=== PATIENT | female | born 1990 | race Caucasian/White ===

== ENCOUNTER 2020-11-08 15:20 | Inpatient (IN) | payer SELFPAY ==
[2020-11-08 15:28] VITALS: BP 151/94; PULSE 81; RESP 18; TEMP 37.2; O2SAT 98; BMI 26.3
[2020-11-08 15:56] LABS: Add Urine Microscopic? NO; Charge for UA Resulting for Rev
[2020-11-08 15:58] VITALS: BP 156/96; PULSE 72; RESP 15; O2SAT 95
--- NOTE | 2020-11-08 15:59 | USR_ITS ---
PROCEDURE INFORMATION: Exam: US Abdomen, Limited; Right Upper Quadrant Exam date and time: 11/08/2020 4:24 PM Age: 30 years old Clinical indication: Abdominal pain; Acute; Additional info: Ruq US TECHNIQUE: Imaging protocol: US abdomen. Real time ultrasound with image documentation. Limited exam focused on the right upper quadrant. Total images: 56 COMPARISON: No relevant prior studies available. FINDINGS: Liver: Normal hepatic parenchyma echogenicity. No visible hepatic mass or cystic structure. Gallbladder: Multiple small gallstones. Associated small amount of gallbladder sludge and/or crystalline debris. Gallstones appear mobile. Negative sonographic Montesinos's sign. No gallbladder wall thickening or pericholecystic fluid. Common bile duct: Normal. No stones. No dilation. Common bile duct measures 4.5 mm. Pancreas: Visualized pancreas is unremarkable. No visible pancreatic ductal ectasia. Right kidney: Normal. No mass. No hydronephrosis. Dimensions of the right kidney 10.6 cm x 4.5 cm x 5.2 cm. Aorta: The abdominal aorta, where visualized, is nonaneurysmal. Portal venous: Antegrade portal venous flow. Inferior vena cava: IVC patent. US/US abdomen limited [id number] IMPRESSION: Cholelithiasis.
[2020-11-08 16:04] LABS: Bilirubin Urine 1+ (Negative); Blood Urine Neg (Negative); Glucose Urine UA Norm (Normal); Ketones Urine Negative (Negative); Leukocyte Esterase Urine Negative (Negative); Nitrate Urine Negative (Negative); Protein Urine Neg (Negative); Specific Gravity, Urine 1.015 (1.005-1.030); Urine Appearance Clear (CLEAR); Urine Color Yellow (Yellow); Urobilinogen Urine 4+ mg/dL (Negative); pH Urine 5 (5-7)
--- NOTE | 2020-11-08 16:12 | W.ED.ABDPA2 ---
HPI - Abdominal Pain General: Chief Complaint: Abdominal Pain Stated Complaint: sent by pcp office for gallbladder issues Time Seen by Provider: 11/08/20 15:41 History of Present Illness: HPI narrative: The patient is a 30-year-old female with known cholelithiasis who went to her primary care doctor this morning complaining of right upper quadrant pain since last night. She was sent to the ER after abnormal labs. Total bilirubin 1.9. AST 853. ALT 562. CBC normal. Continues to complain of sharp right upper quadrant pain. She says she is known she has had gallstones for a number of years and did follow-up with a general surgeon however she got scared and did not want to have surgery to remove her gallbladder. MD elicited complaint: abdominal pain Pain Consistency: constant Location: RUQ Severity: moderate Quality: cramping and sharp Radiation: none Exacerbating factors: eating Relieving factors: nothing Associated Symptoms: Reports no associated symptoms; Denies GI cramping, diarrhea, nausea and vomiting Review of Systems General: Reports: 10 or more systems reviewed and unremarkable except in HPI and below Const: Denies: fatigue Eyes: Denies: change in vision, blurry vision or eye redness ENMT: Denies: throat pain, swelling of lips/tongue, ear or mastoid pain or nasal congestion Card: Denies: chest pain, palpitations, irregular heart rhythm, edema, dyspnea on exertion or orthopnea Resp: Denies: dyspnea, productive cough or non-productive cough GI: Reports: abdominal pain; Denies: nausea, vomiting, diarrhea or GI cramping : Denies: flank pain, difficulty voiding, urinary frequency or urinary urgency Musc: Denies: neck pain, back pain, extremity pain, joint pain, joint redness, limited range of motion or muscle weakness Skin/Breast: Denies: rash, pruritus, erythema, skin pain or skin tenderness Neuro: Denies: headache(s), numbness in extremities, weakness in extremities, sensory changes, difficulty walking, dizziness, confusion or Slurred speech present Psych: Denies: anxiety or depression Endo: Denies: polyuria All/Imm: Denies: urticaria, throat swelling or tongue swelling PFSH ED PFSH: Medical History No pertinent past medical history Surgical History No pertinent past surgical history Family History Other Cholecystitis Social History Smoking and tobacco status: current every day smoker cigarettes [ Other cigarette details: Half a pack a day ] Alcohol intake: current Alcohol intake frequency: few times a month Alcohol type: beer Substance/Drug Use: never Household members: significant other Housing: House Physical Exam Const: COMMON NORMALS: no acute distress, average body habitus, patient oriented x3, no limitations, healthy appearing, alert and well nourished GENERAL APPEARANCE: cooperative, comfortable, well kempt and well developed ORIENTATION/CONSCIOUSNESS: Yes awake, Yes oriented to person, Yes oriented to place and Yes oriented to time HENMT: COMMON NORMALS: normocephalic, external ears normal and Normal external nose present HEAD & SCALP: normal to inspection and normocephalic NOSE: Normal external nose present EXTERNAL EAR: Yes external ears normal MOUTH: Normal oral and palatal mucosa present THROAT: posterior oropharynx normal Eye: COMMON NORMALS: Equal, round and reactive pupils present and EOMs intact bilaterally GENERAL EYE: appearance normal, both eyes and all related structures PUPIL: Yes Equal, round and reactive pupils present Neck/C-Spine: COMMON NORMALS: full ROM, no lymphadenopathy, no meningeal signs and no JVD GENERAL: Yes normal visual inspection Lymph: LYMPHATIC: no lymphadenopathy noted Chest: COMMONS NORMALS: normal inspection of the chest and normal palpation of entire chest wall Resp: COMMON NORMALS: normal respiratory effort, No retractions, No use of accessory muscles, clear to auscultation bilaterally and percussion normal EFFORT & INSPECTION: Yes able to speak in complete sentences AUSCULTATION: clear to auscultation bilaterally PERCUSSION: percussion normal Cardio: COMMON NORMALS: no JVD, regular rate, regular rhythm, S1 normal heart sound present, S2 normal heart sound present and Peripheral pulses 2+ throughout RATE: regular rate RHYTHM: regular rhythm HEART SOUNDS: S1 normal heart sound present and S2 normal heart sound present PERIPHERAL PULSES: Peripheral pulses 2+ throughout GI: COMMON NORMALS: Normal to inspection, nondistended, normoactive bowel sounds present, Soft to palpation and no masses INSPECTION: Yes normal to inspection PALPATION: Yes Soft to palpation GI image (female): 1. Positive Montesinos sign, right upper quadrant tenderness. No rebound tenderness. Soft belly. : COMMON NORMALS: Yes no CVA tenderness BLADDER/KIDNEY EXAM: Yes no CVA tenderness Back/Pelvis: COMMON NORMALS: no CVA tenderness, thoracic and lumbar spine normal to inspection, no thoracic nor lumbar tenderness and thoraco-lumbar ROM normal Extremity: COMMON NORMALS: normal to inspection, full ROM, capillary refill normal, no joint enlargement and no pedal edema GENERAL: Yes normal exam except as noted Neuro: COMMON NORMALS: patient oriented x3, CN's II-XII intact bilaterally, moves all extremities, no focal motor deficits, no sensory deficits noted and gait normal SENSORIUM/ORIENTATION: Yes alert, Yes oriented to person, Yes oriented to place and Yes oriented to time MENINGEAL SIGNS: Yes no meningeal signs Psych: COMMON NORMALS: mental status grossly normal, Normal thought process present, cooperative, normal affect and speech normal APPEARANCE: Yes well kempt ATTITUDE: Yes calm SPEECH: Yes normal speech THOUGHT PROCESS: Normal thought process present Skin: COMMON NORMALS: no rashes or lesions noted GENERAL SKIN EXAM: no rashes or lesions noted Course Vital Signs: Vital signs: Vital Signs Temperature 98.9 F 11/08/20 15:28 Pulse Rate 86 11/08/20 20:44 Respiratory Rate 20 H 11/08/20 20:44 Blood Pressure 188/126 11/08/20 20:44 Pulse Oximetry 98 11/08/20 20:44 MDM - Abdominal Pain MDM Narrative: Medical decision making narrative: The patient is a 30-year-old female who comes to the ER complaining of right upper quadrant pain. Elevated AST, ALT and total bilirubin. Also elevated conjugated bilirubin. Viral hepatitis panel negative. Right upper quadrant ultrasound does show cholelithiasis as well as CT abdomen shows the same thing. No cholecystitis but there is mild periportal swelling. Uncertain significance. Discussed with Dr. Cannon who does not recommend cholecystectomy and will follow the patient if the hospitalist needs. Dr. Spence accepts observation. Lab Data: Labs: Lab Results 11/08/20 11/08/20 11/08/20 Range/Units 15:47 15:47 16:04 WBC 8.2 (4.0-10.0) 10^3/ uL RBC 4.91 (4.1-5.3) 10^6/u L Hgb 15.6 H (11.5-15.3) g/dL Hct 45.3 (37.0-47.0) % MCV 92.3 (81-99) fL MCH 31.8 (28.0-34.0) pg MCHC 34.4 (30.0-36.0) g/dL RDW 11.9 L (12.1-15.1) % Plt Count 260 (130-400) 10^3/c mm MPV 11.3 H (7.4-10.4) fL Neut % (Auto) 78.4 % Lymph % (Auto) 13.8 % [place] % (Auto) 7.3 % Eos % (Auto) 0.1 % Baso % (Auto) 0.2 % Neut # (Auto) 6.40 (1.8-7.7) 10^3/u L Lymph # (Auto) 1.1 (0.8-4.8) 10^3/u L [place] # (Auto) 0.6 (0.2-0.9) 10^3/u L Eos # (Auto) 0.0 (0.0-0.8) 10^3/u L Baso # (Auto) 0.0 (0.0-0.1) 10^3/u L Nucleated RBC % (a uto) 0 % Nucleated RBCs # 0.0 /100WBC Sodium (136-145) mmol/L Potassium (3.5-5.1) mmol/L Chloride (98-107) mmol/L Carbon Dioxide (22-29) mmol/L Anion Gap (5-19) BUN (6-20) mg/dL Creatinine (0.5-0.9) mg/dL GFR Calculation (90-130) mL/min Glucose (65-115) mg/dL Calculated Osmolal ity (285-295) mOsm/k g Calcium (8.5-10.5) mg/dL Total Bilirubin (0.15-1.2) mg/dL Direct Bilirubin (0.00-0.30) mg/d L Indirect Bilirubin AST (0-32) U/L ALT (0-33) U/L Alkaline Phosphata se (35-105) IU/L Total Protein (6.6-8.7) g/dL Albumin (3.5-5.2) g/dL Globulin (1.3-4.6) g/dL Lipase (13-60) U/L HCG, Qual (Negative) Urine Color Yellow (Yellow) Urine Appearance Clear (CLEAR) Urine pH 5 (5-7) Ur Specific Gravit y 1.015 (1.005-1.030) Urine Protein Neg (Negative) Urine Glucose (UA) Norm (Normal) Urine Ketones Negative (Negative) Urine Blood Neg (Negative) Urine Nitrate Negative (Negative) Urine Bilirubin 1+ H (Negative) Urine Urobilinogen 4+ H (Negative) mg/dL Ur Leukocyte Rosalind ase Negative (Negative) Urine Opiates Scre en Negative (Negative) ng/mL Acetaminophen (10-30) ug/mL Ur Barbiturates Sc reen Negative (Negative) ng/mL Ur Phencyclidine S crn Negative (Negative) ng/mL Ur Amphetamines Sc reen Negative (Negative) ng/mL U Benzodiazepines Scrn Negative (Negative) ng/mL Urine Cocaine Scre en Negative (Negative) ng/mL U Marijuana (THC) Screen Negative (Negative) ng/mL Hepatitis A IgM Ab (Nonreactive) Hep Bs Antigen (Nonreactive) Hep B Core IgM Ab (Nonreactive) Hepatitis C Antibo dy (Nonreactive) 11/08/20 11/08/20 11/08/20 Range/Units 16:04 16:04 16:04 WBC (4.0-10.0) 10^3/ uL RBC (4.1-5.3) 10^6/u L Hgb (11.5-15.3) g/dL Hct (37.0-47.0) % MCV (81-99) fL MCH (28.0-34.0) pg MCHC (30.0-36.0) g/dL RDW (12.1-15.1) % Plt Count (130-400) 10^3/c mm MPV (7.4-10.4) fL Neut % (Auto) % Lymph % (Auto) % [place] % (Auto) % Eos % (Auto) % Baso % (Auto) % Neut # (Auto) (1.8-7.7) 10^3/u L Lymph # (Auto) (0.8-4.8) 10^3/u L [place] # (Auto) (0.2-0.9) 10^3/u L Eos # (Auto) (0.0-0.8) 10^3/u L Baso # (Auto) (0.0-0.1) 10^3/u L Nucleated RBC % (a uto) % Nucleated RBCs # /100WBC Sodium 139 (136-145) mmol/L Potassium 3.8 (3.5-5.1) mmol/L Chloride 102 (98-107) mmol/L Carbon Dioxide 25 (22-29) mmol/L Anion Gap 15.8 (5-19) BUN 9 (6-20) mg/dL Creatinine 0.6 (0.5-0.9) mg/dL GFR Calculation 118.2 (90-130) mL/min Glucose 99 (65-115) mg/dL Calculated Osmolal ity 287 (285-295) mOsm/k g Calcium 9.0 (8.5-10.5) mg/dL Total Bilirubin 3.1 H (0.15-1.2) mg/dL Direct Bilirubin (0.00-0.30) mg/d L Indirect Bilirubin AST 885 H (0-32) U/L ALT 777 H (0-33) U/L Alkaline Phosphata se 114 H (35-105) IU/L Total Protein 7.5 (6.6-8.7) g/dL Albumin 5.2 (3.5-5.2) g/dL Globulin 2.3 (1.3-4.6) g/dL Lipase 31 (13-60) U/L HCG, Qual Negative (Negative) Urine Color (Yellow) Urine Appearance (CLEAR) Urine pH (5-7) Ur Specific Gravit y (1.005-1.030) Urine Protein (Negative) Urine Glucose (UA) (Normal) Urine Ketones (Negative) Urine Blood (Negative) Urine Nitrate (Negative) Urine Bilirubin (Negative) Urine Urobilinogen (Negative) mg/dL Ur Leukocyte Rosalind ase (Negative) Urine Opiates Scre en (Negative) ng/mL Acetaminophen (10-30) ug/mL Ur Barbiturates Sc reen (Negative) ng/mL Ur Phencyclidine S crn (Negative) ng/mL Ur Amphetamines Sc reen (Negative) ng/mL U Benzodiazepines Scrn (Negative) ng/mL Urine Cocaine Scre en (Negative) ng/mL U Marijuana (THC) Screen (Negative) ng/mL Hepatitis A IgM Ab Non-reactive (Nonreactive) Hep Bs Antigen Non-reactive (Nonreactive) Hep B Core IgM Ab Non-reactive (Nonreactive) Hepatitis C Antibo dy Non-reactive (Nonreactive) 11/08/20 11/08/20 Range/Units 16:04 16:04 WBC (4.0-10.0) 10^3/ uL RBC (4.1-5.3) 10^6/u L Hgb (11.5-15.3) g/dL Hct (37.0-47.0) % MCV (81-99) fL MCH (28.0-34.0) pg MCHC (30.0-36.0) g/dL RDW (12.1-15.1) % Plt Count (130-400) 10^3/c mm MPV (7.4-10.4) fL Neut % (Auto) % Lymph % (Auto) % [place] % (Auto) % Eos % (Auto) % Baso % (Auto) % Neut # (Auto) (1.8-7.7) 10^3/u L Lymph # (Auto) (0.8-4.8) 10^3/u L [place] # (Auto) (0.2-0.9) 10^3/u L Eos # (Auto) (0.0-0.8) 10^3/u L Baso # (Auto) (0.0-0.1) 10^3/u L Nucleated RBC % (a uto) % Nucleated RBCs # /100WBC Sodium (136-145) mmol/L Potassium (3.5-5.1) mmol/L Chloride (98-107) mmol/L Carbon Dioxide (22-29) mmol/L Anion Gap (5-19) BUN (6-20) mg/dL Creatinine (0.5-0.9) mg/dL GFR Calculation (90-130) mL/min Glucose (65-115) mg/dL Calculated Osmolal ity (285-295) mOsm/k g Calcium (8.5-10.5) mg/dL Total Bilirubin 3.1 H (0.15-1.2) mg/dL Direct Bilirubin 2.20 H (0.00-0.30) mg/d L Indirect Bilirubin 0.90 AST (0-32) U/L ALT (0-33) U/L Alkaline Phosphata se (35-105) IU/L Total Protein (6.6-8.7) g/dL Albumin (3.5-5.2) g/dL Globulin (1.3-4.6) g/dL Lipase (13-60) U/L HCG, Qual (Negative) Urine Color (Yellow) Urine Appearance (CLEAR) Urine pH (5-7) Ur Specific Gravit y (1.005-1.030) Urine Protein (Negative) Urine Glucose (UA) (Normal) Urine Ketones (Negative) Urine Blood (Negative) Urine Nitrate (Negative) Urine Bilirubin (Negative) Urine Urobilinogen (Negative) mg/dL Ur Leukocyte Rosalind ase (Negative) Urine Opiates Scre en (Negative) ng/mL Acetaminophen < 5.0 L (10-30) ug/mL Ur Barbiturates Sc reen (Negative) ng/mL Ur Phencyclidine S crn (Negative) ng/mL Ur Amphetamines Sc reen (Negative) ng/mL U Benzodiazepines Scrn (Negative) ng/mL Urine Cocaine Scre en (Negative) ng/mL U Marijuana (THC) Screen (Negative) ng/mL Hepatitis A IgM Ab (Nonreactive) Hep Bs Antigen (Nonreactive) Hep B Core IgM Ab (Nonreactive) Hepatitis C Antibo dy (Nonreactive) Discharge Plan Discharge Patient Disposition: Placed in Observation Admit Provider: Brenna Spence Clinical Impression: Right upper quadrant pain, Abnormal transaminases, Hyperbilirubinemia Coding Level of Care Code ED Compliance Mgr for Chg Fwd Exam Comprehensive
[2020-11-08 16:14] LABS: Basophils % 0.2 %; Eosinophils % 0.1 %; Hematocrit 45.3 % (37.0-47.0); Hemoglobin 15.6 g/dL (11.5-15.3); Lymphocytes # 1.1 10^3/uL (0.8-4.8); Lymphocytes % 13.8 %; Mean Corpuscular HGB Conc 34.4 g/dL (30.0-36.0); Mean Corpuscular Hemoglobin 31.8 pg (28.0-34.0); Mean Corpuscular Volume 92.3 fL (81-99); Mean Platelet Volume 11.3 fL (7.4-10.4); Monocytes # 0.6 10^3/uL (0.2-0.9); Monocytes % 7.3 %; Neutrophils % 78.4 %; Nucleated Red Blood Cells % 0 %; Platelet Count 260 10^3/cmm (130-400); Red Blood Count 4.91 10^6/uL (4.1-5.3); Red Cell Distribution Width 11.9 % (12.1-15.1); White Blood Count 8.2 10^3/uL (4.0-10.0)
[2020-11-08 16:24] LABS: HCG, Serum Qual Negative (Negative)
[2020-11-08 16:29] LABS: Albumin Level 5.2 g/dL (3.5-5.2); Alkaline Phosphatase 114 IU/L (35-105); Anion Gap 15.8 (5-19); Blood Urea Nitrogen 9 mg/dL (6-20); Carbon Dioxide 25 mmol/L (22-29); Chloride 102 mmol/L (98-107); Globulin 2.3 g/dL (1.3-4.6); Glomerular Filtration Rate 118.2 mL/min (90-130); Glucose 99 mg/dL (65-115); Lipase 31 U/L (13-60); Osmolality Calculated 287 mOsm/kg (285-295); Potassium 3.8 mmol/L (3.5-5.1); Sodium 139 mmol/L (136-145); Total Bilirubin 3.1 mg/dL (0.15-1.2); Total Protein 7.5 g/dL (6.6-8.7)
[2020-11-08 16:40] LABS: Alanine Aminotransferase 777 U/L (0-33)
[2020-11-08 16:42] LABS: Aspartate Amino Transferase 885 U/L (0-32)
[2020-11-08] MEDS: sodium chloride 0.9% 1,000 ML 999 ML IV (17:13)
[2020-11-08] MEDS: ketorolac 30 mg/mL INJ 15 MG IVP (17:16)
--- NOTE | 2020-11-08 17:50 | CTR_ITS ---
PROCEDURE INFORMATION: Exam: CT Abdomen And Pelvis With Contrast Exam date and time: 11/08/2020 5:51 PM Age: 30 years old Clinical indication: Abdominal pain; Localized; Right upper quadrant (ruq); Additional info: Elevated liver enzymes; Total bilirubin. Ruq pain. TECHNIQUE: Imaging protocol: Computed tomography of the abdomen and pelvis with contrast. Total images: 236 Radiation optimization: All CT scans at this facility use at least one of these dose optimization techniques: automated exposure control; mA and/or kV adjustment per patient size (includes targeted exams where dose is matched to clinical indication); or iterative reconstruction. Contrast material: OMNI 300; Contrast volume: 95 ml; Contrast route: INTRAVENOUS (IV); COMPARISON: US abdomen limited [id number] 11/08/2020 4:39 PM RADIATION DOSE METRICS: Total DLP (mGy-cm): 1583.99 FINDINGS: Lungs: Limited assessment of the lung bases fails to reveal evidence for active cardiopulmonary process. Liver: No visible hepatic mass or cystic structure. Mild periportal edema. This is nonspecific finding. Gallbladder and bile ducts: Cholelithiasis. No visible gallbladder wall thickening or pericholecystic fluid. No visible intra or extrahepatic biliary ectasia. Pancreas: Pancreas is unremarkable. No visible pancreatic ductal ectasia. Spleen: Small splenule. Spleen otherwise unremarkable. Adrenal glands: Adrenal glands unremarkable. Kidneys and ureters: No hydronephrosis or perinephric fluid bilaterally. No visible nephrolithiasis or visible ureterolithiasis. Stomach and bowel: Assessment of the hollow viscus fails to reveal evidence of active or acute pathology. Nonobstructed bowel pattern. No visible acute diverticulitis. No visible adynamic or reactive ileus. Appendix: The appendix is visualized and appears noninflamed. Intraperitoneal space: No visible evidence of mesenteric lymphadenitis or active mesenteritis/panniculitis. No visible pneumoperitoneum or intraperitoneal ascites. Vasculature: Portal vein patent. The abdominal aorta is nonaneurysmal. Lymph nodes: No current visible evidence of active mesenteric or retroperitoneal lymphadenopathy. Urinary bladder: Urinary bladder unremarkable. Reproductive: Unremarkable as visualized. Bones/joints: No visible active or acute osseous pathology. Soft tissues: Unremarkable. CT/CT abdomen pelvis w con* [id number] IMPRESSION: 1. Cholelithiasis. 2. No visible intra or extrahepatic biliary ectasia. 3. Mild periportal edema. This is a nonspecific finding. Radiation Dose CTDIVOL = (mGy): DLP = 1583.99 (mGy-cm)
[2020-11-08] MEDS: iohexol 300 mg/mL 100 mL Btl IV (18:02)
[2020-11-08 19:39] LABS: Hepatitis A Antibody IgM Non-Reactive (Nonreactive); Hepatitis B Core IgM Non-Reactive (Nonreactive); Hepatitis B Surface Antigen Non-Reactive (Nonreactive); Hepatitis C Virus Antibody Non-Reactive (Nonreactive)
--- NOTE | 2020-11-08 20:02 | P.HP_ITS ---
Providers/Chief Complaint Primary Care Provider: Jes Villalpando MD Chief Complaint: sent by pcp office for gallbladder issues History of Present Illness Yvette Ortiz is a 30 year old female who does not have significant past medi claudia or surgical history presented today with chief complaint of right upper quadrant pain. Patient is stating that for last few months she has been experiencing right upper quadrant pain which she would experience mostly at night, she has not noticed any relationship with her food intake for this pain. Today around 2:30 AM her right upper quadrant pain woke her up, she was describing this pain as colicky, epigastric pain which was radiating to his right upper quadrant, no radiation of this pain towards the right shoulder, round 430 a.m. she experienced 2 episode of emesis, no fever, dysuria or change in bowel movement. Later today went to her PCP, her CMP revealed abnormal transaminases for which she was requested to go to the hospital for further evaluation. By the time she arrived in the ER she was hemodynamically stable, afebrile, her pain had subsided no active emesis, CBC normal, CMP revealed abnormal transaminases with normal alkaline phosphatase with negative hepatitis panel, no active signs of active/acute cholecystitis no CBD dilation, I have requested Tylenol level, hepatitis panel is negative Patient is endorsing taking 2 tablets of 500 mg of Tylenol today, does not use it on a daily basis. Her other medication is fluoxetine. Review of Systems Const: Denies: fever(s), chills, body aches, fatigue or malaise Eyes: Denies: change in vision ENMT: Denies: throat pain Card: Denies: chest pain Resp: Denies: dyspnea GI: Reports: abdominal pain, nausea and vomiting; Denies: diarrhea, constipation or bloating : Denies: flank pain Musc: Denies: neck pain Skin/Breast: Denies: rash Neuro: Denies: headache(s) Psych: Reports: anxiety Endo: Denies: polyuria Kevin/Lymph: Denies: easy bruising All/Imm: Denies: urticaria Medications/Allergies Home Medications Medication Instructions Recorded Confirmed Last Taken Type acetaminophen [Tylenol Extra 1,000 mg PO PRN 11/08/20 11/08/20 11/08/20 08:30 History Strength] fluoxetine 20 mg PO QAM 11/08/20 11/08/20 11/08/20 History Allergies Allergy/AdvReac Type Severity Reaction Status Date / Time No Known Allergies Allergy Verified 11/08/20 15:52 PFSH Acute PFSH: Medical History No pertinent past medical history Surgical History No pertinent past surgical history Family History Other Cholecystitis Social History Smoking and tobacco status: current every day smoker cigarettes [ Other cigarette details: Half a pack a day ] Alcohol intake: current Alcohol intake frequency: few times a month Alcohol type: beer Substance/Drug Use: never Household members: significant other Housing: House Vitals/I&O/Wt Last Vital Signs Temp 98.9 F 11/08/20 15:28 Pulse 72 11/08/20 15:58 Resp 15 11/08/20 15:58 BP 156/96 11/08/20 15:58 Pulse Ox 95 11/08/20 15:58 Weight last 48 hrs Weight 76.204 kg Physical Exam Narrative: EXAM NARRATIVE: Young female laying comfortably in her bed, fianc? at the bedside Hemodynamically stable Afebrile no active pain No chest pain, No acute respiratory distress no signs of audible stridor or wheezing Her abdomen is soft, no rigidity or guarding, right upper quadrant Montesinos's sign is negative, no signs abdominal tenderness on deep palpation Lower extremity no edema gangrene or ulcer No neurological deficits EOMI, PERRLA Hard to assess scleral icterus in room light Patient seems well-hydrated She is comfortable without active pain with appropriate mood and affect Data : 11/08/20 16:04 11/08/20 16:04 A&P Assessment and plan (1) Abnormal transaminases: Status: Acute (2) Right upper quadrant pain: Status: Acute Additional A&P Information Non viral hepatitis Cholelithiasis without choledocholithiasis Alkaline phosphatase not high however, abnormal transaminases Her last alcoholic drink was on Sunday night, she had 3 beers, does not drink on daily basis, smokes half a pack Denying family history of jaundice, liver cancer, genetic disorders such as Guilbert She only took 2 tablets of Tylenol 500 mg today otherwise does not use on daily basis Hepatitis panel negative Hemoglobin 15.6, normal hematocrit, will check ferritin CT abdomen and ultrasound did not reveal acute cholecystitis, no CBD dilation or pancreatitis, I do suspect gallstone is the cause of abnormal transaminases which has passed through her biliary ducts, patient has been having right upper quadrant pain for quite some time however no relationship with food detected, we will keep her n.p.o. overnight and get HIDA scan in the morning IV fluid hydration overnight Zofran Check drug screen Will request bilirubin panel Considering her symptoms she might benefit from staged cholecystectomy N.p.o. Full code DVT prophylaxis Lovenox Attestations Medical Necessity Statement*: Anticipating discharge within 48 hours will need overnight monitoring to trend her transaminases Time Spent in Patient Care: 35mins Coding Level of Care Code Acute Animal Impersonator for Man Ordonez Diagnoses Abnormal transaminases R74.8 Right upper quadrant pain R10.11
[2020-11-08 20:27] LABS: Total Bilirubin 3.1 mg/dL (0.15-1.2)
[2020-11-08 20:28] LABS: Acetaminophen < 5.0 ug/mL (10-30)
[2020-11-08 20:44] VITALS: BP 188/126; PULSE 86; RESP 20; O2SAT 98
[2020-11-08 20:59] LABS: Amphetamines Screen Urine Negative (Negative); Barbiturates Screen Urine Negative (Negative); Benzodiazepines Screen Urine Negative (Negative); Cocaine Screen Urine Negative (Negative); Opiate Screen Urine Negative (Negative); PCP Screen Urine Negative (Negative); THC Screen Urine Negative (Negative)
[2020-11-08 21:39] LABS: INR 1.09 (0.8-1.2)
[2020-11-08 21:40] LABS: Fibrinogen 311 mg/dL (174-498); Partial Thromboplastin Time 22.1 SECONDS (23.9-36.7)
[2020-11-08 21:41] LABS: Platelet Count 260 10^3/cmm (130-400)
[2020-11-08 21:45] LABS: Alcohol Level < 10 mg/dL (0-10)
--- NOTE | 2020-11-08 22:17 | ECG_ITS ---
[facility] ED Test Date: 2020-11-08 Pat Name: Yvette Ortiz Department: Room: 264 Gender: Female Guardian Ad Litem: : 1990 Requested By: Brenna Spence Order Number: [id number] Oziel MD: Maryse Hassan M.D. Measurements Intervals [place] Rate: 54 P: 40 MI: 180 QRS: 41 QRSD: 106 T: -9 QT: 438 QTc: 416 Interpretive Statements SINUS BRADYCARDIA NONSPECIFIC T-WAVE ABNORMALITY No previous ECG available for comparison Electronically Signed On 11-09-2020 18:41:46 CDT by Maryse Hassan M.D. [id number]
[2020-11-08 22:30] VITALS: BP 150/88; PULSE 54; RESP 20; TEMP 37; O2SAT 97
[2020-11-08 23:18] VITALS: RESP 18
[2020-11-08] MEDS: potassium chloride ER 20 mEq Tablet 40 MEQ PO (23:18)
[2020-11-08] MEDS: dextrose 5%-sod chloride 0.45% 1,000 ML 30 ML IV (23:18)
[2020-11-08] MEDS: morphine 4 mg/mL SDV 1 mL 2 MG IVP (23:18)
[2020-11-08 23:57] VITALS: BP 150/105; PULSE 65; RESP 20; TEMP 36.7; O2SAT 96
[2020-11-09] VITALS (8 sets, daily range): BP systolic 120–158; BP diastolic 79–100; PULSE 60–72; RESP 14–20; TEMP 36.4–37.4; O2SAT 96–98
[2020-11-09 06:18] LABS: Basophils % 0.6 %; Eosinophils # 0.1 10^3/uL (0.0-0.8); Eosinophils % 1.5 %; Hematocrit 41.4 % (37.0-47.0); Lymphocytes # 1.6 10^3/uL (0.8-4.8); Lymphocytes % 30.2 %; Mean Corpuscular HGB Conc 33.8 g/dL (30.0-36.0); Mean Corpuscular Hemoglobin 31.7 pg (28.0-34.0); Mean Corpuscular Volume 93.7 fL (81-99); Mean Platelet Volume 11.8 fL (7.4-10.4); Monocytes # 0.5 10^3/uL (0.2-0.9); Monocytes % 9.7 %; Neutrophils # 3.04 10^3/uL (1.8-7.7); Neutrophils % 57.8 %; Nucleated Red Blood Cells % 0 %; Platelet Count 210 10^3/cmm (130-400); Red Blood Count 4.42 10^6/uL (4.1-5.3); Red Cell Distribution Width 12.1 % (12.1-15.1); White Blood Count 5.3 10^3/uL (4.0-10.0)
[2020-11-09 06:35] LABS: Alanine Aminotransferase 644 U/L (0-33); Albumin Level 4.2 g/dL (3.5-5.2); Alkaline Phosphatase 118 IU/L (35-105); Aspartate Amino Transferase 444 U/L (0-32); Blood Urea Nitrogen 8 mg/dL (6-20); Calcium 8.5 mg/dL (8.5-10.5); Carbon Dioxide 28 mmol/L (22-29); Chloride 107 mmol/L (98-107); Globulin 1.9 g/dL (1.3-4.6); Glomerular Filtration Rate 118.2 mL/min (90-130); Glucose 90 mg/dL (65-115); Lipase 41 U/L (13-60); Osmolality Calculated 296 mOsm/kg (285-295); Sodium 144 mmol/L (136-145); Total Bilirubin 4.2 mg/dL (0.15-1.2); Total Protein 6.1 g/dL (6.6-8.7)
--- NOTE | 2020-11-09 09:02 | PC.NURSE ---
I reported the high bp to the nurse 152/100
[2020-11-09] MEDS: sennosides-docusate Tablet 1 TAB PO (09:11)
[2020-11-09] MEDS: morphine 4 mg/mL SDV 1 mL 2 MG IVP ×2 (09:11→22:27)
--- NOTE | 2020-11-09 10:35 | PC.CHAP ---
Pastoral Care Encounter/Spiritual Assessment Type of Contact [] Declined skin toggler visit [] Patient/Family/Request visit [] Outpatient visit [] Follow-up visit [] Physician referral [] Code/Alert [xx] Routine visit [] Staff referral [] Actively dying [] Patient sleeping [] Family support [] [] Out of room [] Palliative care [] [] Receiving care in room [] Pre-surgical visit [] Trauma [] Long length of stay [] ICU visit [] Other: Relational/Emotional Strength [] Patient feels connected with others/family/visitors/staff [] Distress [] Loneliness/isolation [] Abandonment Spirituality of Patient [] Person of Елена [] Attends Faith of their Елена [] Believes in Prayer [] Reads Bible or Scientologist materials [x] There are Spiritual issues to be addressed Management Developer Interventions [] Prayer [] Active listening [] Non-anxious presence [] Spiritual/emotional support [] Crisis/trauma care [] Spiritual counseling [] Bereavement support [] Provided bereavement packet [] Provided Bible/devotional materials [] Provided toy/stuffed animal, coloring book to patient or family member [] Provided Communion [] Anointing/[place] [] Salvation [x] Completed spiritual assessment [] Other: Impact on Illness or Injury [] Angry [] Fearful [] Anxious [] Often cries [] Exhaustion [] Unable to work [] Unable to attend hindu [] Unable to walk/stand [] Unable to read [] Unable to drive [] Unable to eat/drink [] Unable to sleep [] Unable to be with family [] Patient intubated [] Other: Summary refused prayer Time spent with patient 5 min
--- NOTE | 2020-11-09 11:16 | PC.NURSE ---
I reported the high bp to the nurse
--- NOTE | 2020-11-09 18:39 | PC.NURSE ---
SHIFT SUMMARY PATIENT HAS DONE WELL TODAY. SHE ONLY NEEDED PAIN MEDICATION ONCE TODAY AFTER HER HIDA SCAN. PATIENT IS TOLERATING FOOD WELL. URINE IS DARK IN COLOR, BUT GOOD OUTPUT AMOUNT. PATIENT IS CURRENTLY RESTING WELL IN BED WITH VISITOR AT BEDSIDE.
--- NOTE | 2020-11-09 19:42 | P.PN_ITS ---
Subjective Subjective: Interval history: Patient is complaining of mild right upper quadrant abdominal pain, she has continued to remain afebrile, denies any nausea vomiting, WBC count is normal, liver function test is improving. Vitals/I&O/Wt Last Vital Signs Temp 97.5 F L 11/09/20 15:41 Pulse 66 11/09/20 15:41 Resp 18 11/09/20 15:41 BP 156/85 11/09/20 15:41 Pulse Ox 97 11/09/20 15:41 11/09/20 11/09/20 11/09/20 06:59 14:59 22:59 Output Total 0 / 0 500 / 500 700 / 1200 Balance 0 / 0 -500 / -500 -700 / -1200 Weight last 48 hrs Weight 76.204 kg Physical Exam Const: COMMON NORMALS: patient oriented x3 HENMT: COMMON NORMALS: normocephalic and atraumatic HEAD & SCALP: normocephalic and atraumatic Chest: CHEST: Yes Symmetrical chest wall rise Resp: COMMON NORMALS: clear to auscultation bilaterally AUSCULTATION: clear to auscultation bilaterally Cardio: COMMON NORMALS: regular rate, regular rhythm, S1 normal heart sound present, S2 normal heart sound present, No gallops present (Cardio), No murmurs present (Cardio), No rub (Cardio) and Peripheral pulses 2+ throughout RATE: regular rate RHYTHM: regular rhythm HEART SOUNDS: S1 normal heart sound present and S2 normal heart sound present PERIPHERAL PULSES: Peripheral pulses 2+ throughout GI: COMMON NORMALS: Normal to inspection, nondistended, normoactive bowel sounds present and no masses AUSCULTATION: Yes normoactive bowel sounds RECTAL EXAM: deferred OTHER: Montesinos sign is negative, right upper quadrant tenderness on deep palpation. Extremity: COMMON NORMALS: no clubbing, cyanosis or edema and no pedal edema Neuro: COMMON NORMALS: patient oriented x3 Data : 11/09/20 05:57 11/09/20 05:57 A&P Assessment and plan (1) Abnormal transaminases: Status: Acute (2) Right upper quadrant pain: Status: Acute Additional A&P Information Non viral hepatitis Cholelithiasis without choledocholithiasis Alkaline phosphatase not high however, abnormal transaminases Her last alcoholic drink was on Sunday night, she had 3 beers, does not drink on daily basis, smokes half a pack Denying family history of jaundice, liver cancer, genetic disorders such as Guilbert She only took 2 tablets of Tylenol 500 mg today otherwise does not use on daily basis Hepatitis panel negative Hemoglobin 15.6, normal hematocrit, will check ferritin CT abdomen and ultrasound did not reveal acute cholecystitis, no CBD dilation or pancreatitis, I do suspect gallstone is the cause of abnormal transaminases which has passed through her biliary ducts, patient has been having right upper quadrant pain for quite some time however no relationship with food detected, we will keep her n.p.o. overnight and get HIDA scan: Gallbladder does not fill with radionuclide and there is no activity in the small bowel at 120 minutes. Favor acute cholecystitis and possible bile duct obstruction. IV fluid hydration Clear liquid diet advance as tolerated Zofran Urine drug screen: Negative Total bilirubin:3.1--->4.2 Considering her symptoms she might benefit from staged cholecystectomy N.p.o. Full code DVT prophylaxis Lovenox Attestations Medical Necessity Statement*: Patient needs to be in hospital for management abnormal liver function test, and for monitoring of cholelithiasis without choledocholithiasis. Coding Level of Care Code Acute Airport Operations Officer for Chg Fwd Diagnoses Abnormal transaminases R74.8 Right upper quadrant pain R10.11
--- NOTE | 2020-11-09 22:17 | NM_ITS ---
NOTE: Report was unsigned for reason: Order was edited. Original Signature date and time was: 11/09/20 @0922 WS: [id number] NUCLEAR MEDICINE HIDA SCAN WITH GALLBLADDER EJECTION FRACTION HISTORY: Right upper quadrant pain, nausea, vomiting, cholelithiasis COMPARISON: CT 11/08/2020 TECHNIQUE: The patient was intravenously injected with 7.5 mCi of TC99m Mebrofenin. Immediate imaging over the right upper quadrant was followed by 5 minute image and additional images for a total of 60 minutes. Normal uptake of radiotracer throughout the liver. At 120 minutes and gallbladder is not identified. No significant hyperemia in the gallbladder fossa. At 120 minutes there is no activity in the small bowel. MTDD NM/NM hepatobiliary w phar* [id number] IMPRESSION: 1. Abnormal HIDA scan. 2. Gallbladder does not fill with radionuclide and there is no activity in the small bowel at 120 minutes. Favor acute cholecystitis and possible bile duct o bstruction.
[2020-11-10] VITALS (10 sets, daily range): BP systolic 132–163; BP diastolic 79–97; PULSE 62–76; RESP 15–20; TEMP 36.4–37; O2SAT 94–98
[2020-11-10] MEDS: morphine 4 mg/mL SDV 1 mL 2 MG IVP ×2 (04:19→11:10)
[2020-11-10] MEDS: dextrose 5%-sod chloride 0.45% 1,000 ML 30 ML IV (06:23)
[2020-11-10 06:35] LABS: Basophils % 0.5 %; Eosinophils # 0.1 10^3/uL (0.0-0.8); Eosinophils % 1.8 %; Hematocrit 44.4 % (37.0-47.0); Hemoglobin 14.8 g/dL (11.5-15.3); Lymphocytes # 1.3 10^3/uL (0.8-4.8); Lymphocytes % 20.7 %; Mean Corpuscular HGB Conc 33.3 g/dL (30.0-36.0); Mean Corpuscular Hemoglobin 31.2 pg (28.0-34.0); Mean Corpuscular Volume 93.7 fL (81-99); Mean Platelet Volume 11.6 fL (7.4-10.4); Monocytes # 0.5 10^3/uL (0.2-0.9); Monocytes % 7.8 %; Neutrophils # 4.33 10^3/uL (1.8-7.7); Neutrophils % 68.9 %; Nucleated Red Blood Cells % 0 %; Platelet Count 208 10^3/cmm (130-400); Red Blood Count 4.74 10^6/uL (4.1-5.3); White Blood Count 6.3 10^3/uL (4.0-10.0)
[2020-11-10 06:50] LABS: Lactate (Lactic Acid level) 0.6 mmol/L (0.5-2.2)
[2020-11-10 06:58] LABS: Alanine Aminotransferase 552 U/L (0-33); Albumin Level 4.3 g/dL (3.5-5.2); Alkaline Phosphatase 139 IU/L (35-105); Anion Gap 14.1 (5-19); Aspartate Amino Transferase 229 U/L (0-32); Blood Urea Nitrogen 10 mg/dL (6-20); Calcium 8.4 mg/dL (8.5-10.5); Carbon Dioxide 26 mmol/L (22-29); Chloride 104 mmol/L (98-107); Globulin 2.2 g/dL (1.3-4.6); Glomerular Filtration Rate 118.2 mL/min (90-130); Glucose 113 mg/dL (65-115); Osmolality Calculated 290 mOsm/kg (285-295); Potassium 4.1 mmol/L (3.5-5.1); Sodium 140 mmol/L (136-145); Total Protein 6.5 g/dL (6.6-8.7)
[2020-11-10 06:59] LABS: Procalcitonin 0.06 ng/mL (0-0.5)
[2020-11-10] MEDS: sennosides-docusate Tablet 1 TAB PO (08:47)
--- NOTE | 2020-11-10 11:17 | MR_ITS ---
WS: [id number] MRCP (MAGNETIC RESONANCE CHOLANGIOPANCREATOGRAPHY) HISTORY: Transaminitis COMPARISON: Hepatobiliary scan 11/09/[address] abdomen 11/08/2020 TECHNIQUE: Multiple sequences are performed to evaluate the intra and extrahepatic ducts. Moderately distended gallbladder contains numerous stones. Gallbladder is elongated. No intrahepatic duct dilatation. Common bile duct measures up to 4.5 mm. There are no filling defects along the commo n bile duct. Pancreatic duct is normal. No intrahepatic duct dilatation. The visualized portions of t he liver and spleen and kidneys are negative. No adrenal mass. MR/MR MRCP [id number] IMPRESSION: 1. Cholelithiasis. 2. Normal common bile duct. No choledocholithiasis or intrahepatic duct dilata tion.
--- NOTE | 2020-11-10 11:55 | PM.PN ---
Subjective Subjective: Interval history: Patient continues to complaining of right upper quadrant abdominal pain, she has continued to remain afebrile, denies any nausea vomiting, WBC count is normal, liver function test is improving.Though her T.Bili is still high at 5 Vitals/I&O/Wt Last Vital Signs Temp 97.6 F 11/10/20 10:48 Pulse 76 11/10/20 10:48 Resp 18 11/10/20 11:10 BP 142/86 11/10/20 10:48 Pulse Ox 94 11/10/20 10:48 11/09/20 11/10/20 11/10/20 22:59 06:59 14:59 Intake Total 1082.5 / 1082.5 Output Total 1100 / 1600 600 / 2200 Balance -1100 / -1600 482.5 / -1117.5 Weight last 48 hrs Weight 76.204 kg Physical Exam Const: COMMON NORMALS: patient oriented x3 HENMT: COMMON NORMALS: normocephalic and atraumatic HEAD & SCALP: normocephalic and atraumatic Chest: CHEST: Yes Symmetrical chest wall rise Resp: COMMON NORMALS: clear to auscultation bilaterally AUSCULTATION: clear to auscultation bilaterally Cardio: COMMON NORMALS: regular rate, regular rhythm, S1 normal heart sound present, S2 normal heart sound present, No gallops present (Cardio), No murmurs present (Cardio), No rub (Cardio) and Peripheral pulses 2+ throughout RATE: regular rate RHYTHM: regular rhythm HEART SOUNDS: S1 normal heart sound present and S2 normal heart sound present PERIPHERAL PULSES: Peripheral pulses 2+ throughout GI: COMMON NORMALS: Normal to inspection, nondistended, normoactive bowel sounds present and no masses AUSCULTATION: Yes normoactive bowel sounds RECTAL EXAM: deferred OTHER: Montesinos sign is negative, right upper quadrant tenderness on deep palpation. Extremity: COMMON NORMALS: no clubbing, cyanosis or edema and no pedal edema Neuro: COMMON NORMALS: patient oriented x3 Data : 11/10/20 06:18 11/10/20 06:18 A&P Assessment and plan (1) Abnormal transaminases: Status: Acute (2) Right upper quadrant pain: Status: Acute Additional A&P Information Non viral hepatitis Cholelithiasis without choledocholithiasis Alkaline phosphatase not high however, abnormal transaminases Her last alcoholic drink was on Sunday night, she had 3 beers, does not drink on daily basis, smokes half a pack Denying family history of jaundice, liver cancer, genetic disorders such as Guilbert She only took 2 tablets of Tylenol 500 mg today otherwise does not use on daily basis Hepatitis panel negative Hemoglobin 15.6, normal hematocrit, will check ferritin CT abdomen and ultrasound did not reveal acute cholecystitis, no CBD dilation or pancreatitis, I do suspect gallstone is the cause of abnormal transaminases which has passed through her biliary ducts, patient has been having right upper quadrant pain for quite some time however no relationship with food detected, we will keep her n.p.o. overnight and get HIDA scan: Gallbladder does not fill with radionuclide and there is no activity in the small bowel at 120 minutes. MRCP : Normal common bile duct. No choledocholithiasis or intrahepatic duct dilatation: Suggestive of Cholelithiasis. Moderately distended gallbladder contains numerous stones. Gallbladder is elongated. No intrahepatic duct dilatation. Common bile duct measures up to 4.5 mm. There are no filling defects along the common bile duct. Pancreatic duct is normal. No intrahepatic duct dilatation. The visualized portions of the liver and spleen and kidneys are negative. No adrenal mass. IV fluid hydration Clear liquid diet advance as tolerated Zofran Urine drug screen: Negative Total bilirubin:3.1--->4.2 ---> 4.8--->5 Considering her symptoms she might benefit from staged cholecystectomy Appreciate Surgery Consult CLD advance as tolerated Full code DVT prophylaxis Lovenox Attestations Medical Necessity Statement*: Patient needs to be in hospital for management of cholelithiasis and abnormal liver function test. Coding Level of Care Code Acute Software Quality Assurance Engineer for Chg Fwd Diagnoses Abnormal transaminases R74.8 Right upper quadrant pain R10.11
--- NOTE | 2020-11-10 13:13 | P.CONIM_ITS ---
Providers/Reason For Consult Consulting Physician/Specialty*: Eric Cannon MD Reason for Consult*: Gallbladder stones Requesting Physician: Dr. Monzon Attending Physician: Angelito Monzon MD Primary Care Provider: Jes Villalpando MD History of Present Illness History of Present Illness Chief Complaint: My right side hurtS History of present illness: Ms. araceli Ortiz is a 30 year old female presented to the emergency department with worsening right-sided abdominal pain for the past few days. Been mostly located in the right upper quadrant patient does not report any association with food intake. Mostly colicky and radiates to the right side and more in the epigastric region as well and became more of the right upper quadrant there after patient had history of vomiting but no other constitutional symptoms. Was found to have transaminitis on blood work and on imaging studies; Liver: Normal hepatic parenchyma echogenicity. No visible hepatic mass or cystic structure. Gallbladder: Multiple small gallstones. Associated small amount of gallbladder sludge and/or crystalline debris. Gallstones appear mobile. Negative sonographic Montesinos's sign. No gallbladder wall thickening or pericholecystic fluid. Common bile duct: Normal. No stones. No dilation. Common bile duct measures 4.5 mm. Pancreas: Visualized pancreas is unremarkable. No visible pancreatic ductal ectasia. Right kidney: Normal. No mass. No hydronephrosis. Dimensions of the right kidney 10.6 cm x 4.5 cm x 5.2 cm. Aorta: The abdominal aorta, where visualized, is nonaneurysmal. Portal venous: Antegrade portal venous flow. Inferior vena cava: IVC patent. US/US abdomen limited [id number] IMPRESSION: Cholelithiasis. Following that the CT scan of the abdomen pelvis was obtained and showed 1. Cholelithiasis. 2. No visible intra or extrahepatic biliary ectasia. 3. Mild periportal edema. This is a nonspecific finding. Because of the elevated liver function tests patient was admitted to the hospitalist service for further work-up and a HIDA scan was obtained in the interim that showed; 1. Abnormal HIDA scan. 2. Gallbladder does not fill with radionuclide and there is no activity in the small bowel at 120 minutes. Favor acute cholecystitis and possible bile duct obstruction. General surgery was consulted and appears that her bilirubin was even getting worse and thus an MRCP was recommended by mE and the MRCP did show 1. Cholelithiasis. 2. Normal common bile duct. No choledocholithiasis or intrahepatic duct dilatation. Review of Systems General: Reports: 10 or more systems reviewed and unremarkable except in HPI and below Meds/Allergies Home Medications and Allergies Home Medications Medication Instructions Recorded Confirmed Last Taken Type acetaminophen [Tylenol Extra 1,000 mg PO PRN 11/08/20 11/08/20 11/08/20 08:30 History Strength] fluoxetine 20 mg PO QAM 11/08/20 11/08/20 11/08/20 History Allergies Allergy/AdvReac Type Severity Reaction Status Date / Time No Known Allergies Allergy Verified 11/11/20 11:44 Current Medications Current Medications Generic Name Dose Route Start Last Admin Trade Name Freq PRN Reason Stop Dose Admin Enoxaparin Sodium 40 mg 11/08/20 22:17 11/10/20 00:53 Enoxaparin 40 Mg/0.4 Ml Syringe SUBCUT Not Given Q24H JUSTIN Morphine Sulfate 2 mg 11/08/20 22:17 11/10/20 11:10 Morphine 4 Mg/Ml Sdv 1 Ml IVP 2 mg Q4H PRN Administration abd pain Senna/Docusate Sodium 1 tab 11/09/20 09:00 11/10/20 08:47 Sennosides-Docusate Tablet PO 1 tab DAILY JUSTIN Administration PFSH Acute PFSH: Medical History No pertinent past medical history Surgical History No pertinent past surgical history Family History Other Cholecystitis Social History Smoking and tobacco status: current every day smoker cigarettes [ Other cigarette details: Half a pack a day ] Alcohol intake: current Alcohol intake frequency: few times a month Alcohol type: beer Substance/Drug Use: never Household members: significant other Housing: House Vitals/I&O/Wt Last Vital Signs Temp 97.6 F 11/10/20 12:00 Pulse 76 11/10/20 12:00 Resp 18 11/10/20 12:00 BP 142/86 11/10/20 12:00 Pulse Ox 94 11/10/20 12:00 11/09/20 11/10/20 11/10/20 22:59 06:59 14:59 Intake Total 1082.5 / 1082.5 240 / 240 Output Total 1100 / 1600 600 / 2200 Balance -1100 / -1600 482.5 / -1117.5 240 / 240 Weight last 48 hrs Weight 168 lb Physical Exam Const: COMMON NORMALS: no acute distress and patient oriented x3 GENERAL APPEARANCE: cooperative ORIENTATION/CONSCIOUSNESS: Yes awake, Yes oriented to person, Yes oriented to place and Yes oriented to time HENMT: COMMON NORMALS: normocephalic HEAD & SCALP: normocephalic Eye: COMMON NORMALS: Equal, round and reactive pupils present and no scleral icterus PUPIL: Yes Equal, round and reactive pupils present Lymph: LYMPHATIC: no lymphadenopathy noted Chest: COMMONS NORMALS: normal inspection of the chest Resp: COMMON NORMALS: normal respiratory effort and clear to auscultation bilaterally AUSCULTATION: clear to auscultation bilaterally Cardio: COMMON NORMALS: S1 normal heart sound present and S2 normal heart sound present; negative for No murmurs present (Cardio) HEART SOUNDS: S1 normal heart sound present and S2 normal heart sound present GI: COMMON NORMALS: Soft to palpation; negative for No hepatosplenomegaly present INSPECTION: Yes normal to inspection PALPATION: Yes Soft to palpation, No Firmness to palpation present (GI), No Tenderness to palpation present (GI), No Guarding due to palpation present (GI), No Rigid due to palpation and No No hepatosplenomegaly present Neuro: COMMON NORMALS: patient oriented x3 SENSORIUM/ORIENTATION: Yes oriented to person, Yes oriented to place and Yes oriented to time Psych: COMMON NORMALS: mental status grossly normal Skin: COMMON NORMALS: no rashes or lesions noted GENERAL SKIN EXAM: no rashes or lesions noted A&P Assessment and plan (1) Right upper quadrant pain: After thorough history physical examination reviewing the chart and images with my personal interpretation I did prevocational/rehabilitation counselor the patient for laparoscopic cholecystectomy possible open once her liver function tests trend down as the incidental transaminitis could be a reflection of an underlying hepatocellular disease which may require further work-up by hepatology service. I did prevocational/rehabilitation counselor the patient that trending down of those numbers would be appropriate before we get committed to surgical intervention and I did prevocational/rehabilitation counselor the patient if she would to decide to pursue gallbladder surgery I did offer her a laparoscopic liver biopsy at the same time. Patient would like to think about her options and she will let me know. Assurance and education All questions have been answered and all concerns have been addressed to patient's satisfaction. Status: Acute Consult Attestations Medical Necessity Statement: Patient requiring hospitalization for monitoring of liver function tests and pain control Time Spent in Patient Care: 16 - 35 minutes (>than 50% of time spent in counselling and/or direct pt care on unit) . Coding Level of Care Code Acute Bending Machine Operator for Chg Fwd Exam Comprehensive Diagnoses Right upper quadrant pain R10.11
[2020-11-10] MEDS: sodium chloride 0.9% 1,000 ML 100 ML IV (13:57)
[2020-11-11] MEDS: sodium chloride 0.9% 1,000 ML 100 ML IV ×2 (02:14→16:34)
[2020-11-11 04:00] VITALS: BP 124/77; PULSE 53; RESP 16; TEMP 36.4; O2SAT 98
[2020-11-11 06:05] LABS: Basophils % 0.5 %; Eosinophils # 0.2 10^3/uL (0.0-0.8); Eosinophils % 2.6 %; Hematocrit 43.3 % (37.0-47.0); Hemoglobin 14.7 g/dL (11.5-15.3); Lymphocytes # 1.9 10^3/uL (0.8-4.8); Lymphocytes % 33.4 %; Mean Corpuscular HGB Conc 33.9 g/dL (30.0-36.0); Mean Corpuscular Volume 94.3 fL (81-99); Mean Platelet Volume 11.7 fL (7.4-10.4); Monocytes # 0.5 10^3/uL (0.2-0.9); Monocytes % 8.6 %; Neutrophils # 3.13 10^3/uL (1.8-7.7); Neutrophils % 54.7 %; Nucleated Red Blood Cells % 0 %; Platelet Count 204 10^3/cmm (130-400); Red Blood Count 4.59 10^6/uL (4.1-5.3); Red Cell Distribution Width 12.1 % (12.1-15.1); White Blood Count 5.7 10^3/uL (4.0-10.0)
[2020-11-11 06:22] LABS: Alanine Aminotransferase 368 U/L (0-33); Albumin Level 3.8 g/dL (3.5-5.2); Alkaline Phosphatase 116 IU/L (35-105); Anion Gap 11.7 (5-19); Aspartate Amino Transferase 116 U/L (0-32); Blood Urea Nitrogen 10 mg/dL (6-20); Carbon Dioxide 25 mmol/L (22-29); Chloride 106 mmol/L (98-107); Globulin 2.7 g/dL (1.3-4.6); Glomerular Filtration Rate 118.2 mL/min (90-130); Glucose 94 mg/dL (65-115); Osmolality Calculated 287 mOsm/kg (285-295); Potassium 3.7 mmol/L (3.5-5.1); Sodium 139 mmol/L (136-145); Total Bilirubin 1.6 mg/dL (0.15-1.2); Total Protein 6.5 g/dL (6.6-8.7)
[2020-11-11 07:50] VITALS: BP 127/80; PULSE 54; RESP 18; TEMP 37.2; O2SAT 94
[2020-11-11] MEDS: sennosides-docusate Tablet 1 TAB PO (09:17)
--- NOTE | 2020-11-11 10:24 | PC.NURSE ---
Physician at bedside explaining the options the patient has as far as her gall bladder is concerned. Explained at bedside her options and patient will decide later.
[2020-11-11 12:00] VITALS: BP 148/96; PULSE 67; RESP 17; TEMP 36.8
[2020-11-11 16:00] VITALS: BP 138/94; PULSE 93; RESP 17; TEMP 37.5; O2SAT 98
--- NOTE | 2020-11-11 17:44 | P.PN_ITS ---
Subjective Subjective: Interval history: Overall patient is doing better, abdominal pain has decreased a lot. Continue to remain afebrile, liver function test is improving. Vitals/I&O/Wt Last Vital Signs Temp 99.5 F 11/11/20 16:00 Pulse 93 11/11/20 16:00 Resp 17 11/11/20 16:00 BP 138/94 11/11/20 16:00 Pulse Ox 98 11/11/20 16:00 11/11/20 11/11/20 11/11/20 06:59 14:59 22:59 Intake Total 1550 / 2136.5 916.667 / 916.667 206.667 / 1123.334 Output Total 1000 / 1000 300 / 1300 Balance 1550 / 1436.5 -83.333 / -83.333 -93.333 / -176.666 Physical Exam Const: COMMON NORMALS: patient oriented x3 HENMT: COMMON NORMALS: normocephalic and atraumatic HEAD & SCALP: nor mocephalic and atraumatic Chest: CHEST: Yes Symmetrical chest wall rise Resp: COMMON NORMALS: clear to auscultation bilaterally AUSCULTATION: clear to auscultation bilaterally Cardio: COMMON NORMALS: regular rate, regular rhythm, S1 normal heart sound present, S2 normal heart sound present, No gallops present (Cardio), No murmurs present (Cardio), No rub (Cardio) and Peripheral pulses 2+ throughout RATE: regular rate RHYTHM: regular rhythm HEART SOUNDS: S1 normal heart sound present and S2 normal heart sound present PERIPHERAL PULSES: Peripheral pulses 2+ throughout GI: COMMON NORMALS: Normal to inspection, nondistended, normoactive bowel sounds present, Soft to palpation, non-tender and no masses AUSCULTATION: Yes normoactive bowel sounds PALPATION: Yes Soft to palpation RECTAL EXAM: deferred Extremity: COMMON NORMALS: no clubbing, cyanosis or edema and no pedal edema Neuro: COMMON NORMALS: patient oriented x3 Data : 11/11/20 05:26 11/11/20 05:26 A&P Assessment and plan (1) Abnormal transaminases: Status: Acute (2) Right upper quadrant pain: Status: Acute Additional A&P Information Non viral hepatitis Cholelithiasis without choledocholithiasis: With right upper quadrant abdominal pain. CT abdomen and ultrasound did not reveal acute cholecystitis, no CBD dilation or pancreatitis, I do suspect gallstone is the cause of abnormal transaminases which has passed through her biliary ducts, patient has been having right upper quadrant pain for quite some time however no relationship with food detected, we will keep her n.p.o. overnight and get HIDA scan: Gallbladder does not fill with radionuclide and there is no activity in the small bowel at 120 minutes. MRCP : Normal common bile duct. No choledocholithiasis or intrahepatic duct dilatation: Suggestive of Cholelithiasis. Moderately distended gallbladder contains numerous stones. Gallbladder is elongated. No intrahepatic duct dilatation. Common bile duct measures up to 4.5 mm. There are no filling defects along the common bile duct. Pancreatic duct is normal. No intrahepatic duct dilatation. The visualized portions of the liver and spleen and kidneys are negative. No adrenal mass. IV fluid hydration Zofran Urine drug screen: Negative Total bilirubin:3.1--->4.2 ---> 4.8--->5 --->1.6 AST ALT ,ALP is trending down. N.p.o. after midnight Appreciate Surgery input : laparoscopic cholecystectomy possible open, laparoscopic liver biopsy for possible underlying hepatocellular disease. Possible underlying hepatocellular disease which may require further work-up by hepatology service. Full code DVT prophylaxis Lovenox Attestations Medical Necessity Statement*: Patient needs to be in hospital for management of abdominal pain, abnormal liver function test. Coding Level of Care Code Acute Interpretive Naturalist for Chg Fwd Diagnoses Abnormal transaminases R74.8 Right upper quadrant pain R10.11
[2020-11-11 19:37] VITALS: BP 149/88; PULSE 60; RESP 14; TEMP 36.7; O2SAT 98
[2020-11-11] MEDS: enoxaparin 40 mg/0.4 mL Syringe SUBCUT (22:50)
[2020-11-11 23:54] VITALS: BP 133/77; PULSE 55; RESP 16; TEMP 36.5; O2SAT 98
[2020-11-12] VITALS (12 sets, daily range): BP systolic 134–161; BP diastolic 72–100; PULSE 52–71; RESP 12–22; TEMP 36.1–37; O2SAT 95–100
[2020-11-12] MEDS: sodium chloride 0.9% 1,000 ML 100 ML IV ×2 (02:33→18:04)
[2020-11-12 02:40] LABS: Basophils % 0.5 %; Eosinophils # 0.1 10^3/uL (0.0-0.8); Eosinophils % 1.8 %; Hematocrit 43.4 % (37.0-47.0); Hemoglobin 14.6 g/dL (11.5-15.3); Lymphocytes # 2.3 10^3/uL (0.8-4.8); Lymphocytes % 41.1 %; Mean Corpuscular HGB Conc 33.6 g/dL (30.0-36.0); Mean Corpuscular Hemoglobin 31.5 pg (28.0-34.0); Mean Corpuscular Volume 93.5 fL (81-99); Mean Platelet Volume 11.8 fL (7.4-10.4); Monocytes # 0.5 10^3/uL (0.2-0.9); Monocytes % 8.9 %; Neutrophils # 2.66 10^3/uL (1.8-7.7); Neutrophils % 47.5 %; Nucleated Red Blood Cells % 0 %; Platelet Count 220 10^3/cmm (130-400); Red Blood Count 4.64 10^6/uL (4.1-5.3); Red Cell Distribution Width 11.9 % (12.1-15.1); White Blood Count 5.6 10^3/uL (4.0-10.0)
[2020-11-12 03:04] LABS: Alanine Aminotransferase 409 U/L (0-33); Albumin Level 4.2 g/dL (3.5-5.2); Alkaline Phosphatase 137 IU/L (35-105); Anion Gap 13.9 (5-19); Aspartate Amino Transferase 134 U/L (0-32); Blood Urea Nitrogen 6 mg/dL (6-20); Calcium 8.6 mg/dL (8.5-10.5); Carbon Dioxide 25 mmol/L (22-29); Chloride 107 mmol/L (98-107); Globulin 2.2 g/dL (1.3-4.6); Glomerular Filtration Rate 145.9 mL/min (90-130); Glucose 91 mg/dL (65-115); Osmolality Calculated 291 mOsm/kg (285-295); Potassium 3.9 mmol/L (3.5-5.1); Sodium 142 mmol/L (136-145); Total Bilirubin 1.6 mg/dL (0.15-1.2); Total Protein 6.4 g/dL (6.6-8.7)
--- NOTE | 2020-11-12 06:11 | PC.NURSE ---
pt left to surgery with GERTRUDIS Montes at 0610 with visitor at bedside
--- NOTE | 2020-11-12 06:13 | PM.PN ---
Subjective Subjective: Interval history: Patient overall feels better. Medications: Reviewed: Yes Vitals/I&O/Wt Last Vital Signs Temp 98.6 F 11/12/20 04:00 Pulse 71 11/12/20 04:00 Resp 15 11/12/20 04:00 BP 143/89 11/12/20 04:00 Pulse Ox 98 11/12/20 04:00 11/11/20 11/11/20 11/12/20 14:59 22:59 06:59 Intake Total 916.667 / 916.667 686.667 / 4183.996 0531.666 / 2965.000 Output Total 1000 / 1000 300 / 1300 1550 / 2850 Balance -83.333 / -83.333 386.667 / 303.334 -188.334 / 115.000 Physical Exam Narrative: EXAM NARRATIVE: Patient is conscious alert oriented X3 BMI 26.3 Head and neck examination PERRLA no masses no cervical lymphadenopathy, tinge of jaundice Abdomen nontender nondistended soft no organomegaly guarding or rigidity/no signs of peritonitis Extremities no cyanosis no clubbing no edema Data : 11/12/20 01:55 11/12/20 01:55 A&P Assessment and plan (1) Symptomatic cholelithiasis: Plan of care; After thorough history physical examination and reviewing the chart and images with my personal intrepreatation.I counseled the patient for laparoscopic cholecystectomy possible open and liver biopsy, indications risks including but not limited injury to the common bile duct and/or other viscera,that may require potential future surgical interventions including but not limited to ERCP and or laparatomy that may include Hepatobiliary surgery.Benefits and alternatives all discussed with the patient, and patient did agree to proceed accordingly. All questions have been answered and all concerns have been addressed to patient's satisfaction. Rationale was carefully and clearly discussed with the patient.Appropriate informed consent have been reviewed and signed. Patient understands that her total bilirubin has been stable in the form of 1.6 since yesterday yet her liver function tests has been fluctuating. Imaging studies did not show any CBD stones or intra or extrahepatic biliary dilation. Patient also understand the potential need for an ERCP postoperatively. I also did high school guidance counselor the patient to keep her 1 more night after surgery to follow a trend on the liver function tests and we will obtain a liver biopsy today to help in the work-up. Also I did point out to the patient about the inhalational anesthetics a portion can be metabolized in the liver and that in itself can increase liver functions yet I will defer to to detailed conversation with the attending physician anesthesiologist with that regard. Patient was counseled before about conservative measures and having the surgery done down the road when all liver functions are normalized yet she did show her interest to proceed with surgery understanding the details of the indications, risks, benefits and alternatives. Assurance and education All questions have been answered and all concerns have been addressed to patient's satisfaction. Status: Acute Attestations Medical Necessity Statement*: Patient requiring inpatient hospitalization for perioperative care. Time Spent in Patient Care: 16 - 35 minutes (>than 50% of time spent in counselling and/or direct pt care on unit). 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
[2020-11-12] MEDS: sodium chloride 0.9% 1,000 ML 30 ML IV (06:33)
[2020-11-12 06:43] LABS: OR HCG Qualitative Urine Negative (Negative)
--- NOTE | 2020-11-12 06:53 | ANES.PREANE2 ---
Pre-Anesthetic Assessment Pre-Anesthetic Assessment: Height/Weight: Height 1.7 m Weight 76.204 kg Temp Pulse Resp BP Pulse Ox 97 F L 61 18 154/100 98 11/12/20 06:20 11/12/20 06:20 11/12/20 06:20 11/12/20 06:20 11/12/20 06:20 Preop Diagnosis: Symptomatic cholelithiasis Proposed Procedure: Operation Date: 11/12/20 07:00 Proposed Procedures p Laparoscopic Cholecystectomy, poss Open with liver biopsy(Not Applicable) - Eric Cannon MD Familial anesthetic complications: none Was Beta Sharlene taken within 24 hours: N/A Was Clonidine taken within 24 hours: N/A Last intake: NPO > 8 hrs Social: Social History: No alcohol and No tobacco Exam: Pre-Anes Outpt Exam: alert, oriented x 3, clear to auscultation bilaterally and regular rate & rhythm Airway: Cervical ROM: WNL MP: 2 Dentition: Full Hepatic: Comments: elevated LFTs Anesthetic Plan: ASA status: 2 Anesthesia: General Risk of > 500 ml blood loss (7ml/kg in children): No Meds/Allergies Current Medications: Current Medications Generic Name Dose Route Start Last Admin Trade Name Freq PRN Reason Stop Dose Admin Enoxaparin Sodium 40 mg 11/08/20 22:17 11/11/20 22:50 Enoxaparin 40 Mg /0.4 Ml Syringe SUBCUT 40 mg Q24H JUSTIN Administration Sodium Chloride 1,000 mls @ 100 m ls/hr 11/10/20 11:30 11/12/20 06:11 Sodium Chloride 0.9% IV 0 mls/hr .Q10H JUSTIN Infusion Sodium Chloride 1,000 mls @ 30 ml s/hr 11/12/20 06:30 11/12/20 06:33 Sodium Chloride 0.9% IV 11/13/20 06:29 30 mls/hr .Q24H JUSTIN Administration Morphine Sulfate 2 mg 11/08/20 22:17 11/10/20 11:10 Morphine 4 Mg/Ml Sdv 1 Ml IVP 2 mg Q4H PRN Administration abd pain Senna/Docusate Sod ium 1 tab 11/09/20 09:00 11/11/20 09:17 Sennosides-Docus ate Tablet PO 1 tab DAILY JUSTIN Administration PFSH Anesthesia PFSH: Medical History (Updated 11/12/20 @ 06:35 by Eric Cannon MD) No pertinent past medical history Right upper quadrant pain Surgical History No pertinent past surgical history Family History Other Cholecystitis Social History Smoking and tobacco status: current every day smoker cigarettes [ Other cigarette details: Half a pack a day ] Alcohol intake: current Alcohol intake frequency: few times a month Alcohol type: beer Substance/Drug Use: never Household members: significant other Housing: House Data Anesthesia CBC & Chem 7: 11/12/20 01:55 11/12/20 01:55 Other Labs: Laboratory Results - last 48 hr 11/10/20 11/11/20 11/11/20 06:18 05:26 05:26 WBC 5.7 RBC 4.59 Hgb 14.7 Hct 43.3 MCV 94.3 MCH 32.0 MCHC 33.9 RDW 12.1 Plt Count 204 MPV 11.7 H Neut % (Auto) 54.7 Lymph % (Auto) 33.4 [place] % (Auto) 8.6 Eos % (Auto) 2.6 Baso % (Auto) 0.5 Neut # (Auto) 3.13 Lymph # (Auto) 1.9 [place] # (Auto) 0.5 Eos # (Auto) 0.2 Baso # (Auto) 0.0 Nucleated RBC % (auto) 0 Nucleated RBCs # 0.0 Sodium 140 139 Potassium 4.1 3.7 Chloride 104 106 Carbon Dioxide 26 25 Anion Gap 14.1 11.7 BUN 10 10 Creatinine 0.6 0.6 GFR Calculation 118.2 118.2 Glucose 113 94 Calculated Osmolality 290 287 Calcium 8.4 L 8.0 L Total Bilirubin 5.0 H 1.6 H AST 229 H 116 H ALT 552 H 368 H Alkaline Phosphatase 139 H 116 H Total Protein 6.5 L 6.5 L Albumin 4.3 3.8 Globulin 2.2 2.7 Procalcitonin 0.06 Urine HCG, Qual 11/12/20 11/12/20 11/12/20 01:55 01:55 06:37 WBC 5.6 RBC 4.64 Hgb 14.6 Hct 43.4 MCV 93.5 MCH 31.5 MCHC 33.6 RDW 11.9 L Plt Count 220 MPV 11.8 H Neut % (Auto) 47.5 Lymph % (Auto) 41.1 [place] % (Auto) 8.9 Eos % (Auto) 1.8 Baso % (Auto) 0.5 Neut # (Auto) 2.66 Lymph # (Auto) 2.3 [place] # (Auto) 0.5 Eos # (Auto) 0.1 Baso # (Auto) 0.0 Nucleated RBC % (auto) 0 Nucleated RBCs # 0.0 Sodium 142 Potassium 3.9 Chloride 107 Carbon Dioxide 25 Anion Gap 13.9 BUN 6 Creatinine 0.5 GFR Calculation 145.9 H Glucose 91 Calculated Osmolality 291 Calcium 8.6 Total Bilirubin 1.6 H AST 134 H ALT 409 H Alkaline Phosphatase 137 H Total Protein 6.4 L Albumin 4.2 Globulin 2.2 Procalcitonin Urine HCG, Qual Negative Cardiac Studies: No Data to Display
[2020-11-12] MEDS: ampicillin-sulbactam 3 GM in sodium chloride 0.9% (plus) 50 ML IV (06:58)
[2020-11-12] MEDS: lidocaine 2% INJ 20 mL INJECTION (08:03)
--- NOTE | 2020-11-12 08:24 | PM.OP ---
Operative Report Date of procedure: November 12, 2020 Pre-op Diagnosis: Symptomatic cholelithiasis Post-op diagnosis: same Post-op Findings: Acute on top of chronic cholecystitis Stones appreciated at the cystic duct stump Procedure Done: Laparoscopic cholecystectomy Laparoscopic liver biopsy Specimens removed/disposition: Gallbladder and contents Surgeon: Eric Cannon Truck Technician: Surgical zeny Cortés Circulating nurse Janelle Boyer Anesthesia: General (hand or machine paster Solomon) Estimated blood loss (mL): 15 IV fluids (mL): 500 Condition: stable Disposition: floor Brief History: Symptomatic cholelithiasis. Full H&P and informed consent per chart Procedure: Patient was identified in the holding area and taken back to the operative suite, placed in supine position intubated by anesthesia . Time-out was done verifying the patient's name/date of /planned procedure and destination after the procedure, all were in agreement. SCDs confirmed to be functioning, preoperative antibiotics administered per protocol, and beta janice protocol was confirmed. Patient was appropriately secured to the table, footboard was applied to the OR table, before prep and drape anesthesia was asked to tilt the table back and forth to make sure that the patient is appropriately secured and she was. Prep and drape of the abdomen was done under the usual sterile technique, followed by that supraumbilical skin incision,skin incision was done by a 15 blade knife, and stay sutures were applied to the fascia and Martinez trocar technique was used to enter the abdominal without injuring any abdominal viscera, started by low flow gas insufflation followed by a high flow, started with a 10 mm laparoscope and under direct vision there was no evidence of any injuries, the scope then switched to a 30? ,10 millimeter scope and under direct visualization 5 millimeter trocar was inserted in the epigastric region followed by two 5 mm trocars were inserted in the right upper quadrant that was done after injection of local lidocaine 2% at all incision sites. Gallbladder showed acute calculus cholecystitis. Associated hepatomegaly due to fatty liver Patient was then positioned in the head up and tilted to the left Ratcheted forceps were introduced into the lateral most 5mm port and was applied unto the fundus of the gallbladder cephalad and using Bullet forceps the infundibulum of the gallbladder was retracted laterally. 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 Dissection was carried along the body of the gallbladder and after ensuring critical view of safety was identfied. Cystic duct and cystic artery where seen connected to the gallbladder. Clips were applied on the cystic duct towards the common bile duct 1 towards the gallbladder then divided is in sharp scissors, 2 clips were then applied onto the cystic artery and 1 towards the gallbladder and divided by sharp scissors. The 5 mm clips were not enough to traverse onto the diameter of the cystic duct stump and so I elected to place an Endoloop PDS under direct visualization. Prior to application of clips on the cystic duct I did do perform a ductotomy to milk stones out and I flushed it using the suction irrigation device. Dissection was then carried along of the gallbladder from the gallbladder fossa using cautery as well as sharp dissection with heat energy. The gallbladder then was dissected out from the gallbladder fossa totally , cholecystectomy was then achieved and was placed in an Endo Catch bag and then retrieved from the Martinez trocar site under direct visualization using a 5 mm 30? scope through the epigastric trocar, specimen was then passed to the circulating nurse to go for permanent pathology,irrigation and hemostasis was done to the gallbladder fossa after hemostasis was secured, final survey laparoscopy was done that showed no injuries. I elected to take a liver biopsy from the edge of the liver in the form of a cold biopsy using laparoscopic scissors followed by cauterization for hemostasis.tion irrigation was obtained using 2 L of warm saline. The supraumbilical fascial defect was then closed using interrupted #1 PDS sutures using a fascial closure device ;John Vinson under direct visualization Gas was allowed to deflate,Trocars were then taken out under direct vision there was no evidence of bleeding Specimens were passed to the circulating nurse for permanent pathology. No drains were placed and the supraumbilical incision as well as all trocar sites were closed by 3-0 Vicryl by 4-0 Monocryl to approximate the skin edges of the supraumbilical incision, dressing was applied in the form of Dermabond and the patient patient got extubated and was taken to recovery area in a stable condition. Count of sponges, needles and instruments were completed at the end of the procedure I was present for the whole entire procedure. Associated Problem List Diagnoses (1) Abnormal transaminases:
--- NOTE | 2020-11-12 08:43 | P.PCN_ITS ---
PACU note PACU note: VSS, Good respiratory effort, report to FREIGHT TRUCKER Post-Anesthesia Exam: awake
--- NOTE | 2020-11-12 08:43 | PM.PACU ---
PACU note PACU note: VSS, Good respiratory effort, report to CAMP BOSS Post-Anesthesia Exam: awake
--- NOTE | 2020-11-12 10:40 | PM.DCS ---
Discharge Providers Date of Admission: 11/08/20 20:10 Date of Discharge: November 12, 2020 Attending Provider at Admission: Brenna Spence MD Attending Provider at Discharge: Angelito Monzon MD Primary Care Provider: Jes Villalpando MD Diagnoses at Discharge Discharge Diagnosis (1) Symptomatic cholelithiasis: Status: Acute (2) Abnormal transaminases: Status: Acute Reason for Visit Reason for Visit: sent by pcp office for gallbladder issues Hospital Course Hospital Course 30 year old female with no significant past medical or surgical history presented with chief complaint of right upper quadrant pain.On admission patient stated that for last few months she has been experiencing right upper quadrant pain which she would experience mostly at night, she has not noticed any relationship with her food intake for this pain. On the day of admission pain started early in the morning right upper quadrant pain woke her up, she was describing this pain as colicky, epigastric pain which was radiating to his right upper quadrant. Later on the day she went to her primary care physician office which revealed abnormal transaminases, she was sent to ER by her primary care physician.CBC normal, CMP revealed abnormal transaminases with normal alkaline phosphatase with negative hepatitis panel, no active signs of active/acute cholecystitis no CBD dilation. She was admitted for the management of symptomatic cholelithiasis,without choledocholithiasis: Postop finding acute on top of chronic cholecystitis. CT abdomen and ultrasound did not reveal acute cholecystitis, no CBD dilation or pancreatitis. HIDA scan: Gallbladder does not fill with radionuclide and there is no activity in the small bowel at 120 minutes. MRCP :Normal common bile duct. No choledocholithiasis or intrahepatic duct dilatation: Suggestive of Cholelithiasis. Moderately distended gallbladder contains numerous stones. Gallbladder is elongated. No intrahepatic duct dilatation.Common bile duct measures up to 4.5 mm. There are no filling defects along the common bile duct. Pancreatic duct is normal. No intrahepatic duct dilatation. The visualized portions of the liver and spleen and kidneys are negative. No adrenal mass.Surgery was on board she underwent Laparoscopic cholecystectomy with laparoscopic liver biopsy. At the time of discharge her abnormal transaminases was improving likely because of abnormal transaminases is passed gallstone. Patient responded well to the above medical and surgical management. Patient will continue to follow surgery as an outpatient in 1 week. Physical Exam Const: COMMON NORMALS: patient oriented x3 HENMT: COMMON NORMALS: normocephalic and atraumatic HEAD & SCALP: normocephalic and atraumatic Chest: CHEST: Yes Symmetrical chest wall rise Resp: COMMON NORMALS: clear to auscultation bilaterally AUSCULTATION: clear to auscultation bilaterally Cardio: COMMON NORMALS: regular rate, regular rhythm, S1 normal heart sound present, S2 normal heart sound present, No gallops present (Cardio), No murmurs present (Cardio), No rub (Cardio) and Peripheral pulses 2+ throughout RATE: regular rate RHYTHM: regular rhythm HEART SOUNDS: S1 normal heart sound present and S2 normal heart sound present PERIPHERAL PULSES: Peripheral pulses 2+ throughout GI: COMMON NORMALS: Normal to inspection, nondistended, normoactive bowel sounds present, Soft to palpation, non-tender and no masses AUSCULTATION: Yes normoactive bowel sounds PALPATION: Yes Soft to palpation RECTAL EXAM: deferred Extremity: COMMON NORMALS: no clubbing, cyanosis or edema and no pedal edema Neuro: COMMON NORMALS: patient oriented x3 Discharge Data Data Completed and Pending: Completed Studies During Hospitalization Category Date Time Status CT abdomen pelvis w con* [id number] Stat Cat Scan 11/08/20 17:50 Completed MR MRCP 11657 Rou lisa MRI 11/10/20 11:17 Completed NM hepatobiliary wo phar [id number] Rout ine Nuc Med 11/09/20 22:17 Completed US abdomen limite d [id number] Urgent Ultrasound 11/08/20 15:59 Completed Pending at discharge Category Date Time Status ES surgery / GI i mages Routine Exams 11/12/20 06:29 Taken Pathology: Surgic al [PTH] Routine Pth 11/12/20 08:28 Received Labs from last 24 hours 11/12/20 11/12/20 11/12/20 06:37 01:55 01:55 WBC 5.6 RBC 4.64 Hgb 14.6 Hct 43.4 MCV 93.5 MCH 31.5 MCHC 33.6 RDW 11.9 L Plt Count 220 MPV 11.8 H Neut % (Auto) 47.5 Lymph % (Auto) 41.1 [place] % (Auto) 8.9 Eos % (Auto) 1.8 Baso % (Auto) 0.5 Neut # (Auto) 2.66 Lymph # (Auto) 2.3 [place] # (Auto) 0.5 Eos # (Auto) 0.1 Baso # (Auto) 0.0 Nucleated RBC % (a uto) 0 Nucleated RBCs # 0.0 Sodium 142 Potassium 3.9 Chloride 107 Carbon Dioxide 25 Anion Gap 13.9 BUN 6 Creatinine 0.5 GFR Calculation 145.9 H Glucose 91 Calculated Osmolal ity 291 Calcium 8.6 Total Bilirubin 1.6 H AST 134 H ALT 409 H Alkaline Phosphata se 137 H Total Protein 6.4 L Albumin 4.2 Globulin 2.2 Urine HCG, Qual Negative Vitals: Last Vital Signs Temp 97.7 F 11/12/20 09:10 Pulse 56 L 11/12/20 09:51 Resp 18 11/12/20 09:10 BP 154/88 11/12/20 09:10 Pulse Ox 95 11/12/20 09:51 Discharge Plan Discharge Patient Disposition: Home Condition: Stable Prescriptions: New tramadol 100 mg tablet extended release 24 hr 100 mg PO DAILY PRN (Reason: pain) Qty: 10 RF: 0 Continued fluoxetine 20 mg capsule 20 mg PO QAM RF: 0 Discontinued acetaminophen [Tylenol Extra Strength] 500 mg Tablet 1,000 mg PO PRN RF: 0 Discharge Orders: Discharge Order (Routine); Ordered 11/12/20 Ordered By: Eric Cannon Other Ambulatory Orders: Comprehensive Metabolic Panel (Routine) Timeframe: 1 Week Facility: [facility] - Location: Lab - Main Lab Ordered By: Angelito Monzon Referrals: Eric Cannon MD [Physician] - 4-7 days (Please call [facility] [place] [facility] on Sunday to schedule an appointment to be seen on Sunday and .) Discharge Diet: Regular Discharge Activity: Resume usual activity Patient Instructions: Tramadol (By mouth), Low Fat Diet (DC), Laparoscopic Cholecystectomy (DC), Non-Alcoholic Fatty Liver Disease (DC), DASH Eating Plan (DC), Opioid Safety Activity Restrictions/Additional Instructions: 1. Patient can shower after 48 hours from surgery 2. Remove Dermabond 7 to 10 days after surgery, if there is a secondary dressing can take down after 48 hours. 3. Up and walking as tolerated 4. Do not lift more than 5 pounds first 2 weeks after surgery and not more than 25 pounds 6 to 8 weeks after surgery. 5. Do not operate heavy machinery or drive while using pain medications. 6.Contact the office or return to the ER for worsening nausea vomiting fevers or chills, or noticing any redness around incision sites or discharge. Discharge Attestations Time Spent in Discharge Care*: less than 30 min Specific Discharge Activities: educating patient, educating and/or supporting family/caregiver, discussing with pcp/other providers, discussing with outsole caser/social workers/dc planners, documenting/other paperwork and evaluating patient/reviewing data Status at Discharge: Cognitive status at discharge: cognitively intact, Behavioral status at discharge: cooperative, Functional status at discharge: independent ambulation Overall status at discharge: patient is back to baseline Quality Metrics Clinical Quality Measures During this hospital stay, did patient experience: None Coding Level of Care Code Acute Chg DC note Diagnoses Symptomatic cholelithiasis K80.20 Abnormal transaminases R74.8
[2020-11-12] MEDS: morphine 4 mg/mL SDV 1 mL 2 MG IVP (10:51)
[2020-11-12] MEDS: ondansetron 2 mg/ML SDV 2 mL 4 MG IVP (10:51)
--- NOTE | 2020-11-12 13:12 | ANE.PACU2 ---
Inpatient post-anesthesia follow up: Airway intact: Yes Vital signs: Temperature 97.7 F Pulse Rate [Monito r] 81 Pulse Rate 56 Respiratory Rate 17 Blood Pressure [Le ft Arm] 151/94 Blood Pressure 154/88 Pulse Oximetry 95 Oxygen Delivery Me thod [ Room Air Current Rate & Del erik] Oxygen Delivery Me thod Room Air Oxygen Flow Rate 8 Fraction of Inspir ed Oxygen Hydration adequate: Yes Nausea and vomiting: No Pain level: 2 Mental status: Baseline
[2020-11-12] MEDS: TRAMadol 50 mg Tablet PO (13:44)
--- NOTE | 2020-11-12 14:58 | PC.RESP ---
Smoking Cessation information sent to patient.
== END 2020-11-12 19:10 | disposition home or self-care (01) | DRG 419 ==
LOC: ER 15:42 → MEDSURG 21:38
PROVIDERS: Anesthesiology; Physician Assistant; Surgery; Admitting Provider Internal Medicine; Emergency Provider Family Medicine; PCP Family Medicine; Visit Provider Internal Medicine
PROC: 0FT44ZZ Resection of Gallbladder, Percutaneous Endoscopic Approach (ICD-10-PCS; CPT 47562; principal; 2020-11-12 07:00)
DX: K80.12 Calculus of gallbladder with acute and chronic cholecystitis without obstruction (principal); F17.210 Nicotine dependence, cigarettes, uncomplicated; R94.5 Abnormal results of liver function studies; K76.0 Fatty (change of) liver, not elsewhere classified
CPT/HCPCS: 36415; 74177; 74181; 76705; 78226; 78227; 80053; 80074; 80306; 80307; 81003; 81025; 82247; 82248; 83605; 83690; 84145; 84703; 85025; 85049; 85384; 85610; 85730; 88304; 88307; 93005; 96365; 96372; A9537; J0295; J1100; J1650; J1885; J2270; J2370; J2405; J2704; J2710; J3010; J3490; J7030; J7799; Q9967

== ENCOUNTER 2020-11-18 15:15 | Outpatient (CLI) | payer SELFPAY | END 2020-11-18 15:16 | disposition home or self-care (01) | LOC: LAB 15:17 | PROVIDERS: PCP Family Medicine; Visit Provider Surgery | DX: Z48.89 Encounter for other specified surgical aftercare (principal) | CPT/HCPCS: 36415; 80076 ==

== ENCOUNTER 2020-12-02 14:10 | Outpatient (CLI) | payer SELFPAY ==
[2020-12-02 14:57] LABS: Alanine Aminotransferase 69 U/L (0-33); Albumin Level 4.4 g/dL (3.5-5.2); Alkaline Phosphatase 178 IU/L (35-105); Aspartate Amino Transferase 52 U/L (0-32); Globulin 2.6 g/dL (1.3-4.6); Total Bilirubin 0.5 mg/dL (0.15-1.2)
== END 2020-12-02 14:11 | disposition home or self-care (01) ==
LOC: LAB 14:12
PROVIDERS: PCP Family Medicine; Visit Provider Surgery
DX: Z48.89 Encounter for other specified surgical aftercare (principal)
CPT/HCPCS: 80076

== ENCOUNTER 2021-01-20 14:37 | Outpatient (CLI) | payer SELFPAY ==
[2021-01-20 15:47] LABS: Alanine Aminotransferase 15 U/L (0-33); Albumin Level 4.4 g/dL (3.5-5.2); Alkaline Phosphatase 61 IU/L (35-105); Aspartate Amino Transferase 15 U/L (0-32); Globulin 2.6 g/dL (1.3-4.6); Total Bilirubin 0.3 mg/dL (0.15-1.2)
== END 2021-01-20 14:38 | disposition home or self-care (01) ==
LOC: LAB 14:41
PROVIDERS: PCP Family Medicine; Visit Provider Surgery
DX: K71.6 Toxic liver disease with hepatitis, not elsewhere classified (principal); T50.905A Adverse effect of unspecified drugs, medicaments and biological substances, initial encounter
CPT/HCPCS: 80076

== ENCOUNTER 2021-06-13 16:35 | Inpatient (IN) | payer MEDICAID, SELFPAY ==
[2021-06-13] VITALS (24 sets, daily range): BP systolic 114–140; BP diastolic 80–98; PULSE 57–89; RESP 17–18; O2SAT 96–98; BMI 28.6
--- NOTE | 2021-06-13 16:00 | US_ITS ---
WS: [id number] ULTRASOUND EARLY TECHNIQUE: Transabdominal sonography of the pelvis was performed. CLINICAL INFORMATION: unable to find FHT LMP: 12/09/2020 Beta hCG: Unknown. COMPARISON: None. FINDINGS: UTERUS AND GESTATIONAL SAC Intrauterine gestations: Single intrauterine gestation. No heart tones are detected. Cervix measures 3.0 CM. Placenta is posterior. FREE FLUID None. US/US OB limited [id number] IMPRESSION: 1. No heart tones detected. Findings compatible with demise. Recom mend interval follow-up. Dr. Mahan present for examination.
--- NOTE | 2021-06-13 17:04 | PM.OPHPUD ---
Labor & Delivery H&P Update Date of Procedure: June 13, 2021 Date H&P Performed: 06/07/21 H&P update information: I have reviewed H&P completed within last 30 days, I have examined patient prior to procedure and Changes to prior documentation as noted here (Patient has a demise. No contractions.) Admission Diagnosis: Preop diagnosis: 25 week with a demise, unknown etiology. Primary indication for procedure: demise. No movement x 4 days. Planned procedure: induction of labor and delivery of fetus. I discussed what to expect and will provide adequate IV pain meds and/or epidural anesthesia if desired.
[2021-06-13 17:26] LABS: Basophils % 0.3 %; Hematocrit 42.5 % (37.0-47.0); Hemoglobin 14.9 g/dL (11.5-15.3); Lymphocytes # 3.2 10^3/uL (0.8-4.8); Lymphocytes % 36.5 %; Mean Corpuscular HGB Conc 35.1 g/dL (30.0-36.0); Mean Corpuscular Hemoglobin 32.3 pg (28.0-34.0); Mean Platelet Volume 11.1 fL (7.4-10.4); Monocytes # 0.7 10^3/uL (0.2-0.9); Monocytes % 7.9 %; Neutrophils # 4.83 10^3/uL (1.8-7.7); Neutrophils % 54.8 %; Nucleated Red Blood Cells % 0 %; Platelet Count 125 10^3/cmm (130-400); Red Blood Count 4.62 10^6/uL (4.1-5.3); Red Cell Distribution Width 12.7 % (12.1-15.1); White Blood Count 8.8 10^3/uL (4.0-10.0)
[2021-06-13] MEDS: miSOPROStol 100 mcg tablet VAGINAL (17:30)
[2021-06-13 17:46] LABS: Slide Review Slide Review Perform
[2021-06-13] MEDS: acetaminophen 325 mg Tablet 650 MG PO (19:37)
[2021-06-13] MEDS: miSOPROStol 200 mcg Tablet VAGINAL (23:36)
[2021-06-14] VITALS (26 sets, daily range): BP systolic 106–151; BP diastolic 64–92; PULSE 65–92; RESP 16–17; TEMP 35.7–37.1; O2SAT 97–100
[2021-06-14] MEDS: dextrose 5%-lactated ringers 1,000 ML 125 ML IV (04:04)
[2021-06-14] MEDS: hyDROXYzine 25 mg Capsule 50 MG PO (04:05)
[2021-06-14] MEDS: fentaNYL 50 mcg/mL INJ 2mL IVP ×7 (04:05→13:10)
[2021-06-14] MEDS: miSOPROStol 100 mcg tablet VAGINAL ×2 (04:28→09:09)
[2021-06-14] MEDS: lactated ringers 1,000 ML 999 ML IV ×2 (13:11→14:22)
--- NOTE | 2021-06-14 14:34 | P.ANESASSM_ITS ---
Pre-Anesthetic Assessment Pre-Anesthetic Assessment: Height/Weight: Height 1.7 m Weight 83.007 kg Temp Pulse Resp BP Pulse Ox 96.3 F L 57 L 17 124/82 98 06/14/21 00:57 06/13/21 21:25 06/14/21 13:10 06/13/21 21:25 06/13/21 16:34 Preop Diagnosis: 25 week with a demise, unknown etiology. Familial anesthetic complications: None Was Beta Sharlene taken within 24 hours: N/A Was Clonidine taken within 24 hours: N/A Last intake: . 8hrs Social: Social History: No alcohol and No tobacco Exam: Pre-Anes Outpt Exam: alert, oriented x 3, clear to auscultation bilaterally and regular rate & rhythm Airway: Cervical ROM: WNL MP: 2 Dentition: Full Hepatic: Hepatic: Hepatitis Anesthetic Plan: ASA status: 2 Anesthesia: Regional (specify below) Risk of > 500 ml blood loss (7ml/kg in children): No Meds/Allergies Current Medications: Current Medications Generic Name Dose Route Start Last Admin Trade Name Freq PRN Reason Stop Dose Admin Acetaminophen 650 mg 06/13/21 16:32 06/13/21 19:37 Acetaminophen 32 5 Mg Tablet PO 650 mg Q6H PRN Administration Mild pain or temp > 100.4 Fentanyl 25 - 100 mcg 06/13/21 16:32 06/14/21 13:10 Fentanyl 50 Mcg/ Ml Inj 2ml IVP 75 mcg Q1H PRN Administration SEVERE PAIN Hydroxyzine Pamoat e 50 mg 06/13/21 16:32 06/14/21 04:05 Hydroxyzine 25 M g Capsule PO 50 mg QID PRN Administration sleep, agitation or itching Dextrose/Lactated Ringer's 1,000 mls @ 125 m ls/hr 06/13/21 16:45 06/14/21 07:00 Dextrose 5%-Lact ated Ringers IV 125 mls/hr .Q8H JUSTIN Infusion Lactated Ringer's 1,000 mls @ 999 m ls/hr 06/14/21 12:54 06/14/21 14:22 Lactated Ringers IV 999 mls/hr .Q1H1M PRN Administration See label comment s PFSH Anesthesia PFSH: Medical History Abnormal transaminases Hyperbilirubinemia No pertinent past medical history Right upper quadrant pain Symptomatic cholelithiasis Surgical History No pertinent past surgical history Family History Other Cholecystitis Social History Smoking and tobacco status: current every day smoker cigarettes [ Other cigarette details: Half a pack a day ] Alcohol intake: current Alcohol intake frequency: few times a month Alcohol type: beer Household members: significant other Housing: House Female Reproductive History: : 2 Data Anesthesia CBC & Chem 7: 06/13/21 17:00 Other Labs: Laboratory Results - last 48 hr 06/13/21 17:00 WBC 8.8 RBC 4.62 Hgb 14.9 Hct 42.5 MCV 92.0 MCH 32.3 MCHC 35.1 RDW 12.7 Plt Count 125 L MPV 11.1 H Neut % (Auto) 54.8 Lymph % (Auto) 36.5 [place] % (Auto) 7.9 Eos % (Auto) 0.0 Baso % (Auto) 0.3 Neut # (Auto) 4.83 Lymph # (Auto) 3.2 [place] # (Auto) 0.7 Eos # (Auto) 0.0 Baso # (Auto) 0.0 Nucleated RBC % (auto) 0 Nucleated RBCs # 0.0 Cardiac Studies: No Data to Display Anesthesia Procedures Epidural: Time Out Performed: Yes Consents Signed: Procedure Consent, NPO Consent and No Consent Needed Consent: requested by attending/covering physician, from patient, risks and benefits reviewed and patient agrees to proceed Lumbar Level: L2-L3 Epidural position: sitting Epidural procedure: sterile prep of area, 1% lidocaine to numb the area, 18 g needle, negative for paresthesia passed, neg for paresthesia, test dose given, 1.5% xylocaine 1:200k epi (5), 0.2% Ropivacaine bolus ml (5), placed PCEA, no systemic response, sterile dressing applied, L.U.D. no apparent complications and 0.2% Ropiavacaine @ mls/hr (13) Additional Comments: DIANA at 5.5 cm, threaded to 11.5 cm, though no apparent relief from bolus. Patient complaining she needs to push. Nurse check revealed baby palpable vaginally, delivery commenced
[2021-06-14] MEDS: oxytocin 30 UNIT/500 ML BAG 600 UNIT IV (14:37)
--- NOTE | 2021-06-14 14:41 | PM.DELIVERY ---
Delivery Note: Date of delivery: June 14, 2021 Pre-Delivery Course: This 2, para 1 patient was followed through the course by Dr. Zarate at [facility]. Maternal blood type was A+ with antibody screen negative. The remainder of the lab work was normal. At approximately 25 weeks gestation she had decreased movement and was worried therefore she came to [facility] yesterday afternoon. Where heart tones were not found. Ultrasound was done with finding of no heart motion but no other abnormality seen. At that time the problem was discussed with the patient and spouse and a decision was made to proceed with induction of demise with misoprostel. Delivery: The patient was given misoprostel 100 mcg intravaginally followed by a 200 mcg dose and twice more a 100 mcg dose. She slowly thinned and dilated and the pain became enough that she desired epidural anesthesia as the intravenous medication was not working well enough. After the epidural was given she was also started on Pitocin augmentation and fairly quickly went to complete cervical dilatation and this physician was called as she was delivering. The was found to be in breech presentation at delivery by nurses report with a nuchal cord x1 and arm cord x1. The delivery time was approximately 1432. This physician arrived in time to deliver the placenta with spontaneous delivery at approximately 1435. Evaluation of the placenta demonstrated a possible partial abruption. Evaluation of the infant demonstrated a fairly normal appearing fetus with no obvious abnormalities noted. There is no episiotomy and no lacerations. There is no significant vaginal bleeding post delivery and Pitocin has been started intravenously. The patient will be monitored closely and the epidural will be discontinued. If she is not bleeding heavily and is ambulating well will be allowed to be discharged later this evening. Post-Delivery Status: Physically, the patient is doing well. Presently she is holding the and tearful. We will monitor for any heavy bleeding or other problems and probably discharge later this evening. We will send the placenta to pathology for evaluation. A&P Assessment and plan (1) demise > 22 weeks, delivered, current hospitalization: We are unsure as to the cause of the demise. It very well may have been a tight nuchal cord versus at least a partial abruption even though she did not have any heavy bleeding. Staff are giving the patient good support and we can arrange counseling if needed and allow grieving process. Status: Acute (2) Vaginal delivery: Patient appears to be doing well at this time and is not bleeding heavily. We will monitor closely and make sure she is ambulating well without problems without heavy bleeding prior to discharge. Status: Acute Coding Level of Care Code Acute Wreath Machine Operator for Chg Fwd Diagnoses demise > 22 weeks, delivered, current hospitalization O36.4XX0 Vaginal delivery O80
[2021-06-14] MEDS: ibuprofen 800 mg tablet PO (16:43)
--- NOTE | 2021-06-14 17:32 | P.DS_ITS ---
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 She was found to have a demise verified by ultrasound. She was induced with misoprostel followed by Pitocin augmentation after epidural although the Pitocin did not ever get started. She rapidly dilated to complete cervical dilatation early this afternoon and delivered a nonviable fetus with no heartbeat. The placenta delivered spontaneously shortly afterward and appeared to present a possible partial abruption as there was clots on the placenta. However there was not a significant amount of blood. The patient has been grieving appropriately and has had the baby in with her for the last few hours. She is getting ready to ambulate and I expect she will do fine. She has had no significant bleeding with just minimal lochia. She denies any significant cramps. She is felt to be stable be discharged home if she tolerates ambulation without problems. She will call tomorrow to arrange follow-up with Dr. Zarate for next week. The placenta was sent for evaluation by the pathologist. Physical Exam Const: COMMON NORMALS: no acute distress, healthy appearing and well nourished EXAM LIMITATIONS: no altered mental status, no behavioral limitations and no physical limitations GENERAL APPEARANCE: cooperative and comfortable HENMT: COMMON NORMALS: moist oral mucous membranes Resp: COMMON NORMALS: normal respiratory effort, No retractions, No use of accessory muscles and clear to auscultation bilaterally AUSCULTATION: clear to auscultation bilaterally Cardio: COMMON NORMALS: regular rate and regular rhythm RATE: regular rate RHYTHM: regular rhythm GI: COMMON NORMALS: Normal to inspection, nondistended, normoactive bowel sounds present and Soft to palpation (Fundus is firm and well below the umbilicus. She has mild suprapubic tende) PALPATION: Yes Soft to palpation (Fundus is firm and well below the umbilicus. She has mild suprapubic tende) : COMMON NORMALS: Yes no CVA tenderness BLADDER/KIDNEY EXAM: Yes no CVA tenderness Back/Pelvis: COMMON NORMALS: no CVA tenderness and no thoracic nor lumbar tenderness Extremity: COMMON NORMALS: normal to inspection and no clubbing, cyanosis or edema Neuro: COMMON NORMALS: no focal motor deficits and no sensory deficits noted Psych: MOOD & AFFECT: Yes depressed mood (Appropriate depression and grieving secondary to demise at 25-06/19 wee) Skin: COMMON NORMALS: no rashes or lesions noted and turgor normal GENERAL SKIN EXAM: no rashes or lesions noted and turgor normal Discharge Data Data Completed and Pending: Completed Studies During Hospitalization Category Date Time Status US OB limited 768 15 Stat Ultrasound 06/13/21 16:00 Completed Pending at discharge Category Date Time Status Hemagram Timed Lab 06/15/21 02:52 Uncollected Pathology: Surgic al [PTH] Routine Pth 06/14/21 14:35 Ordered Labs from last 24 hours 06/13/21 17:00 WBC 8.8 RBC 4.62 Hgb 14.9 Hct 42.5 MCV 92.0 MCH 32.3 MCHC 35.1 RDW 12.7 Plt Count 125 L MPV 11.1 H Neut % (Auto) 54.8 Lymph % (Auto) 36.5 [place] % (Auto) 7.9 Eos % (Auto) 0.0 Baso % (Auto) 0.3 Neut # (Auto) 4.83 Lymph # (Auto) 3.2 [place] # (Auto) 0.7 Eos # (Auto) 0.0 Baso # (Auto) 0.0 Nucleated RBC % (a uto) 0 Nucleated RBCs # 0.0 Vitals: Last Vital Signs Temp 96.3 F L 06/14/21 00:57 Pulse 57 L 06/13/21 21:25 Resp 17 06/14/21 13:10 BP 124/82 06/13/21 21:25 Pulse Ox 98 06/13/21 16:34 Discharge Plan Discharge Patient Disposition: Home Condition: Stable Prescriptions: New docusate sodium 100 mg Capsule 100 mg PO BID Qty: 30 RF: 1 ibuprofen 800 mg Tablet 800 mg PO TID PRN (Reason: Pain (Scale Score 4-6)) Qty: 60 RF: 1 Continued fluoxetine 20 mg capsule 20 mg PO QAM RF: 0 tramadol 100 mg tablet extended release 24 hr 100 mg PO DAILY PRN (Reason: pain) Qty: 10 RF: 0 Discharge Orders: Discharge Order (Routine); Ordered 06/14/21 Ordered By: Killian Mahan Referrals: Liza Zarate MD [Physician] - 7-10 days Discharge Diet: Usual diet Discharge Activity: Resume usual activity Patient Instructions: Opioid Safety Discharge Attestations MANUFACTURING MAINTENANCE MECHANIC Time Spent in Discharge Care*: less than 30 min Specific Discharge Activities: Specific discharge activities: educating patient, educating and/or supporting family/caregiver, documenting/other paperwork and evaluating patient/reviewing data Status at Discharge: Cognitive status at discharge: cognitively intact , Behavioral status at discharge: cooperative , Coding Level of Care Code Acute 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
--- NOTE | 2021-06-15 12:04 | ANE.PACU2 ---
Inpatient post-anesthesia follow up: Airway intact: Yes Vital signs: Temperature 98.1 F Pulse Rate 69 Respiratory Rate 17 Blood Pressure 116/82 Pulse Oximetry 97 Oxygen Delivery Me thod Room Air Oxygen Flow Rate Fraction of Inspir ed Oxygen Hydration adequate: Yes Nausea and vomiting: No Pain level: 2 Mental status: Baseline
== END 2021-06-14 21:50 | disposition home or self-care (01) | DRG 805 ==
LOC: OPOB 16:36 → OBGYN 16:36
PROVIDERS: Admitting Provider Family Medicine; PCP Family Medicine; Visit Provider Family Medicine
DX: O36.4XX0 Maternal care for intrauterine death, not applicable or unspecified (principal); O45.92 Premature separation of placenta, unspecified, second trimester; Z37.1 Single stillbirth; O69.81X0 Labor and delivery complicated by cord around neck, without compression, not applicable or unspecified; O99.334 Smoking (tobacco) complicating childbirth; F17.210 Nicotine dependence, cigarettes, uncomplicated; Z87.19 Personal history of other diseases of the digestive system; Z3A.25 25 weeks gestation of pregnancy
CPT/HCPCS: 36415; 59409; 76815; 85025; 88305; 96374; 96376; 99211; J3010